=== PATIENT | male | born 1945 | race Caucasian/White ===

== ENCOUNTER 2016-10-19 15:05 | Inpatient (IN) | payer MEDICARE ==
[~2016-10-19] VITALS: Ht 173 cm; Wt 53.0 kg
[~2016-10-19 15:05] MED LIST: ALBUTEROL0.09 MG/AC IH; ASPIRIN ADULT L81 M2 PO; BENADRYL25 M2 PO; BISACODYL LAXATI5 MG PO; BLOOD PRESSURE MED; FLEXERIL10 MG PO; GABAPENTIN400 MG PO; HYDROCODONE BIT1 T11 PO; KEFLEX500 MG PO; LIPITOR20 MG PO; Lopressor25 MG PO; MEDROL DOSEPAK4 MG PO; Motrin,Rufen800 MG PO; NAPROSYN500 MG PO; NAPROXEN375 M1 PO; NORCO 5-325 TA1 EACH PO; PEG PO; PEPCID20 MG PO; PRAVASTATIN SOD20 MG PO; PREDNICOT20 MG PO; PREDNISONE20 M1 PO; PRINIVIL5 M1 PO; SPIRIVA18 MCG IH; ULTRAM50 MG PO
[2016-10-19 15:10] VITALS: BP 183/100
[2016-10-19] MEDS ORDERED: CITALOPRAM HYDR20 MG PO (15:12)
[2016-10-19 15:30] VITALS: BP 168/86
[2016-10-19 15:34] LABS: BASO # 0.1 10*3/uL (0.0-0.1); BASO % 0.9 % (0.0-1.0); EOS # 0.3 10*3/uL (0.0-0.4); EOS % 3.7 % (1.0-4.0); HEMATOCRIT 51.1 % (42.0-52.0); HEMOGLOBIN 17.6 g/dl (14.0-18.0); LYMPH # 2.8 10*3/uL (1.3-4.4); LYMPH % 31.8 % (27.0-41.0); MEAN CELL VOLUME 97.9 fl (80.0-94.0); MEAN CORPUSCULAR HGB 33.7 pg (27.0-31.0); MEAN CORPUSCULAR HGB CONC 34.4 g/dl (33.0-37.0); MEAN PLATELET VOLUME 10.3 fl (9.6-12.3); MONO # 0.8 10*3/uL (0.1-1.0); MONO % 9.2 % (3.0-9.0); NEUT # 4.8 10*3/uL (2.3-7.9); NEUT % 54.2 % (47.0-73.0); PLATELET COUNT AUTOMATED 256 10*3/uL (130-400); RED BLOOD COUNT 5.22 10*6/uL (4.50-5.90); RED CELL DISTRI WIDTH 15.2 % (0-14.5); WHITE BLOOD COUNT 8.8 10*3/uL (4.8-10.8)
[2016-10-19 16:05] LABS: INTERNATIONAL NORM RATIO 1.1 (2.0-3.5); PROTHROMBIN TIME 11.3 SECONDS (9.0-12.4)
[2016-10-19 16:14] LABS: ALBUMIN 3.8 gm/dl (3.1-4.5); ALKALINE PHOSPHATASE 62 U/L (45-117); BILIRUBIN, TOTAL 1.5 mg/dl (0.2-1.0); BUN 12 mg/dl (7-24); CARBON DIOXIDE 25 mmol/L (21-32); CHLORIDE 104 mmol/L (98-107); EST GLOM FILT AFRICAN AMERICAN > 60 ml/min; GLUCOSE 76 mg/dL (65-99); MAGNESIUM 2.1 mg/dL (1.5-2.1); POTASSIUM 4.2 mmol/L (3.5-5.1); SGOT/AST 14 IU/L (3-35); SGPT/ALT 23 U/L (12-78); SODIUM 141 mmol/L (136-145); TOTAL PROTEIN 6.7 gm/dL (6.4-8.2)
[2016-10-19 16:15] LABS: TROPONIN I < 0.015 ng/ml (<0.045)
[2016-10-19] MEDS ORDERED: CARVEDILOL6.25 MG PO (16:49)
[2016-10-19 16:50] VITALS: BP 140/80
[2016-10-19 17:12] VITALS: BP 179/93
[2016-10-19 18:03] LABS: CKMB 1.9 ng/ml (0.5-3.6)
[2016-10-19 19:35] LABS: URINE AMPHETAMINES < 1000 (1000ng/ml); URINE BARBITURATES < 200 (200ng/ml); URINE COCAINE > 300 (300ng/ml)
[2016-10-19 20:00] VITALS: BP 111/71
[2016-10-20] VITALS: BP 121/69
[2016-10-20 00:36] LABS: CKMB 1.8 ng/ml (0.5-3.6)
[2016-10-20 06:32] LABS: BASO % 0.1 % (0.0-1.0); HEMATOCRIT 51.9 % (42.0-52.0); HEMOGLOBIN 17.9 g/dl (14.0-18.0); IG # 0.1 10*3/uL (0.0-0.1); LYMPH # 1.3 10*3/uL (1.3-4.4); LYMPH % 9.4 % (27.0-41.0); MEAN CORPUSCULAR HGB 34.2 pg (27.0-31.0); MEAN CORPUSCULAR HGB CONC 34.5 g/dl (33.0-37.0); MONO # 0.1 10*3/uL (0.1-1.0); MONO % 0.7 % (3.0-9.0); NEUT # 12.4 10*3/uL (2.3-7.9); PLATELET COUNT AUTOMATED 285 10*3/uL (130-400); RED BLOOD COUNT 5.24 10*6/uL (4.50-5.90); WHITE BLOOD COUNT 13.9 10*3/uL (4.8-10.8)
[2016-10-20 06:41] LABS: CKMB 1.3 ng/ml (0.5-3.6)
[2016-10-20 06:54] LABS: ALBUMIN 3.8 gm/dl (3.1-4.5); ALKALINE PHOSPHATASE 71 U/L (45-117); BILIRUBIN, TOTAL 1.1 mg/dl (0.2-1.0); BUN 14 mg/dl (7-24); CARBON DIOXIDE 24 mmol/L (21-32); CHLORIDE 101 mmol/L (98-107); CHOLESTEROL 227 mg/dL (<200); EST GLOM FILT AFRICAN AMERICAN > 60 ml/min; GLUCOSE 123 mg/dL (65-99); HDL CHOLESTEROL 71 mg/dl (40-60); LDL CHOLESTEROL 139 mg/dL (9-159); PHOSPHOROUS 2.9 mg/dL (2.5-4.9); POTASSIUM 3.6 mmol/L (3.5-5.1); SGOT/AST 19 IU/L (3-35); SGPT/ALT 26 U/L (12-78); SODIUM 138 mmol/L (136-145); TOTAL PROTEIN 7.8 gm/dL (6.4-8.2); TRIGLYCERIDES 86 mg/dl (<150); VLDL CHOLESTEROL 17 mg/dL (6-40)
[2016-10-20 06:55] LABS: INTERNATIONAL NORM RATIO 1.1 (2.0-3.5); PROTHROMBIN TIME 11.2 SECONDS (9.0-12.4)
[2016-10-20 06:59] LABS: FREE T4 1.21 ng/dl (0.76-1.46); THYROID STIM HORMONE (HS) 0.782 uIU/ml (0.358-4.75)
[2016-10-20 07:24] LABS: HEMOGLOBIN A1c 5.4 % (4.8-5.6)
[2016-10-20 07:31] LABS: VITAMIN D, 25-HYDROXY 22.8 ng/mL (30-100)
[2016-10-20 07:32] LABS: FOLIC ACID 9.52 ng/mL (>5.38)
[2016-10-20 08:00] VITALS: BP 121/81
[2016-10-20 12:00] VITALS: BP 126/79
[2016-10-20 16:00] VITALS: BP 129/81
[2016-10-20 20:00] VITALS: BP 121/78
[2016-10-21] VITALS: BP 132/76
[2016-10-21 06:20] LABS: HEMOGLOBIN 16.1 g/dl (14.0-18.0); MEAN CELL VOLUME 96.6 fl (80.0-94.0); MEAN CORPUSCULAR HGB 33.8 pg (27.0-31.0); MEAN PLATELET VOLUME 9.7 fl (9.6-12.3); PLATELET COUNT AUTOMATED 272 10*3/uL (130-400); RED BLOOD COUNT 4.76 10*6/uL (4.50-5.90); RED CELL DISTRI WIDTH 15.2 % (0-14.5); WHITE BLOOD COUNT 24.1 10*3/uL (4.8-10.8)
[2016-10-21 06:53] LABS: ALBUMIN 3.6 gm/dl (3.1-4.5); ALKALINE PHOSPHATASE 60 U/L (45-117); BILIRUBIN, TOTAL 0.9 mg/dl (0.2-1.0); BUN 16 mg/dl (7-24); CARBON DIOXIDE 24 mmol/L (21-32); CHLORIDE 104 mmol/L (98-107); EST GLOM FILT AFRICAN AMERICAN > 60 ml/min; GLUCOSE 123 mg/dL (65-99); POTASSIUM 3.7 mmol/L (3.5-5.1); SGOT/AST 15 IU/L (3-35); SGPT/ALT 30 U/L (12-78); SODIUM 141 mmol/L (136-145); TOTAL PROTEIN 6.7 gm/dL (6.4-8.2)
[2016-10-21 07:10] LABS: MONOCYTE # 0.5 10*3/uL (0.1-1.0); NEUTROPHIL # 22.7 10*3/uL (2.3-7.9); NEUTROPHILS 94 % (47-73); PLATELET SUFFICIENCY NORMAL (NORMAL); TOTAL CELLS COUNTED 100 #CELLS
[2016-10-21 08:00] VITALS: BP 125/77
[2016-10-21] MEDS ORDERED: B12,B-12,B 12500 MC1 PO (11:42)
[2016-10-21] MEDS ORDERED: D-1000 185 MG-11 TAB PO (11:42)
[2016-10-21] MEDS ORDERED: PREDNISONE10 MG PO (12:56)
[2016-10-21] MEDS ORDERED: LEVAQUIN500 M2 PO (12:57)
== END 2016-10-21 13:30 | disposition home or self-care (01) | DRG 190 ==
LOC: ED 15:05 → EDHOLD 16:37 → 4E 16:37
PROVIDERS: Hospitalist; Internal Medicine; Nurse Practitioner Family
PROC: 4A12XM4 Monitoring of Cardiac Stress, External Approach (ICD-10-PCS; principal; 2016-10-20)
PROC: 3E073KZ Introduction of Other Diagnostic Substance into Coronary Artery, Percutaneous Approach (ICD-10-PCS; principal; 2016-10-20)
DX: J44.1 Chronic obstructive pulmonary disease with (acute) exacerbation (principal); J18.9 Pneumonia, unspecified organism; K21.9 Gastro-esophageal reflux disease without esophagitis; R07.89 Other chest pain; F14.90 Cocaine use, unspecified, uncomplicated; F10.10 Alcohol abuse, uncomplicated; I10 Essential (primary) hypertension; F32.9 Major depressive disorder, single episode, unspecified; E55.9 Vitamin D deficiency, unspecified; E53.8 Deficiency of other specified B group vitamins; E78.5 Hyperlipidemia, unspecified; G56.02 Carpal tunnel syndrome, left upper limb; F17.210 Nicotine dependence, cigarettes, uncomplicated; Z95.1 Presence of aortocoronary bypass graft; Z88.8 Allergy status to other drugs, medicaments and biological substances; Z91.030 Bee allergy status; Z90.79 Acquired absence of other genital organ(s); Z82.3 Family history of stroke; Z71.6 Tobacco abuse counseling; Z82.49 Family history of ischemic heart disease and other diseases of the circulatory system; Z84.89 Family history of other specified conditions; Z90.49 Acquired absence of other specified parts of digestive tract; Z98.49 Cataract extraction status, unspecified eye; Z85.46 Personal history of malignant neoplasm of prostate; Z79.82 Long term (current) use of aspirin; Z79.899 Other long term (current) drug therapy

== ENCOUNTER → 2017-02-23 | Outpatient (CLI) | payer MEDICARE ==
[~2017-02-23] MED LIST changes: +B12,B-12,B 12500 MC1 PO; +CARVEDILOL6.25 MG PO; +CITALOPRAM HYDR20 MG PO; +D-1000 185 MG-11 TAB PO; +LEVAQUIN500 M2 PO; +PREDNISONE10 MG PO
== END | disposition home or self-care (01) ==
LOC: ORTHO 03:49
DX: M18.12 Unilateral primary osteoarthritis of first carpometacarpal joint, left hand (principal)

== ENCOUNTER → 2017-04-30 | Outpatient (CLI) | payer MEDICARE ==
[~2017-04-30] MED LIST changes: +ATORVASTATIN CA40 M1 PO; +BACLOFEN20 M1 PO; +PROAIR HFA8.5 GM INH; +SPIRIVA -- 3018 MCG INH
[2017-04-30 09:57] LABS: BASO # 0.1 10*3/uL (0.0-0.1); BASO % 0.6 % (0.0-1.0); EOS # 0.2 10*3/uL (0.0-0.4); EOS % 2.3 % (1.0-4.0); LYMPH # 2.3 10*3/uL (1.3-4.4); LYMPH % 28.3 % (27.0-41.0); MEAN CELL VOLUME 98.1 fl (80.0-94.0); MEAN CORPUSCULAR HGB 33.4 pg (27.0-31.0); MEAN PLATELET VOLUME 9.2 fl (9.6-12.3); MONO # 0.6 10*3/uL (0.1-1.0); MONO % 7.9 % (3.0-9.0); NEUT # 4.9 10*3/uL (2.3-7.9); NEUT % 60.4 % (47.0-73.0); PLATELET COUNT AUTOMATED 278 10*3/uL (130-400); RED BLOOD COUNT 4.79 10*6/uL (4.50-5.90); RED CELL DISTRI WIDTH 13.9 % (0-14.5); WHITE BLOOD COUNT 8.1 10*3/uL (4.8-10.8)
[2017-04-30 10:27] LABS: ALBUMIN 4.1 gm/dl (3.1-4.5); ALKALINE PHOSPHATASE 63 U/L (45-117); BUN 13 mg/dl (7-24); CHLORIDE 101 mmol/L (98-107); CREATININE 1.13 mg/dL (0.70-1.30); POTASSIUM 4.6 mmol/L (3.5-5.1); SGOT/AST 16 IU/L (3-35); SGPT/ALT 24 U/L (12-78); SODIUM 134 mmol/L (136-145); TOTAL PROTEIN 7.1 gm/dL (6.4-8.2)
== END | disposition home or self-care (01) ==
LOC: LAB 08:29
PROVIDERS: Orthopaedic Surgery
DX: Z01.818 Encounter for other preprocedural examination (principal); J44.9 Chronic obstructive pulmonary disease, unspecified; M13.842 Other specified arthritis, left hand; Z87.891 Personal history of nicotine dependence; Z95.1 Presence of aortocoronary bypass graft; Z79.899 Other long term (current) drug therapy

== ENCOUNTER → 2018-02-10 | Outpatient (CLI) | payer MEDICARE ==
[~2018-02-10] MED LIST changes: +DOXYCYCLINE100 M3 PO; +HYDROCODONE-AC1 EAC1 PO; +NATURE'S BLEND F1 MG PO; +SYMB160 INH; +VENTOLIN 02.5 MG/3 M INH; +VITAMIN D32000 UNI1 PO
== END | disposition home or self-care (01) ==
LOC: RAD 10:31
DX: M47.892 Other spondylosis, cervical region (principal); G56.93 Unspecified mononeuropathy of bilateral upper limbs; M19.90 Unspecified osteoarthritis, unspecified site

== ENCOUNTER 2018-03-07 10:31 | Inpatient (IN) | payer MEDICARE ==
[~2018-03-07] VITALS: Ht 172.7 cm; Wt 55.9 kg
--- NOTE | ~2018-03-07 | EKG ---
[place], [place] ELECTROCARDIOGRAM REPORT NAME: LARISSA RANKIN UNIT #: [id number] ROOM: 427 DOCTOR: ANJALI DRAFT REPORT BIRTHDATE: [birth year] [facility] Test Date: 2018-03-07 Test Time: 10:46:39 Pat Name: LARISSA RANKIN Department: Room: 427 Gender: M Circulation Crew Leader: : 1945 Requested By: BARBRA BAGLEY Order Number: [id number] Reading MD: Rosie Graf MD Measurements Intervals [place] Rate: 85 P: 96 [place]: 160 QRS: -20 QRSD: 94 T: 90 QT: 408 QTc: 486 Interpretive Statements Sinus rhythm Borderline left axis deviation RSR' in V1 or V2, probably normal variant Repol abnrm suggests ischemia, anterolateral Electronically Signed On 03-08-2018 14:22:27 PST by Rosie Graf MD CM:EKGRPT:ELECTROCARDIOGRAM REPORT [id number] BARBRA CARR DRAFT REPORT BARBRA BAGLEY DO
--- NOTE | ~2018-03-07 | PR ---
[place], [place] PROGRESS NOTE NAME: LARISSA RANKIN UNIT #: [id number] ROOM: 427 DOCTOR: THERESE DODGE MD,KRZYSZTOF BIRTHDATE: [birth year] DOS: 03/09/2018 ADDENDUM PULMONARY PROGRESS NOTE SUBJECTIVE: The patient was independently seen and examined, obvl-ba-thso encounter, history was confirmed. Physical examination performed. Labs reviewed. Assessment and management of the patient today noted partially completed. The patient's note done by the medical logistics specialist approved. The patient continue to have reduction in respiratory symptom last 24 hours. Denies symptoms of chest pain, coughing, wheezing, and other symptoms had improved and was eager to be discharged home. OBJECTIVE: VITAL SIGNS: For the patient which were recorded as normal temperature, respiratory rate of 17, heart rate of 68, blood pressure 130/62, pulse ox saturation on room air at rest at 94% saturation. HEENT: Head was atraumatic. Eyes nonicterus. NECK: Supple. CARDIOVASCULAR: S1, S2 audible. LUNGS: Fhmi-oq-hfxamxqx decreased breath sounds, there was no wheeze or crackles today. ABDOMEN: Soft, nontender. Bowel sounds present. EXTREMITIES: Without any acute edema. IMPRESSION: Resolving acute exacerbation of chronic obstructive pulmonary disease, acute tracheobronchitis, history of chronic nicotine dependence. PLAN OF TREATMENT: The patient would be approved for home discharge from pulmonary standpoint with tapering prednisone, antibiotics. Abstinence from tobacco use were recommended. KRZYSZTOF SALEH MD CM:PNTRANS 1240 KRZYSZTOF DODGE MD 03/10/186 interface
--- NOTE | ~2018-03-07 | PR ---
[place], [place] PROGRESS NOTE NAME: LARISSA RANKIN UNIT #: [id number] ROOM: 427 DOCTOR: WINSTON CARBAJAL DO BIRTHDATE: [birth year] DOS: 03/09/2018 PULMONOLOGY PROGRESS NOTE SUBJECTIVE: The patient was seen and evaluated on a general medical floor. The patient reports that all of his symptoms have resolved and his wheezing. The patient denies any shortness of breath, nausea, vomiting, chest pain, urinary complaints or any other symptoms. PHYSICAL EXAMINATION: VITAL SIGNS: Temperature 97.2, pulse 68, respiratory rate 17, blood pressure 130/82, pulse ox 94% on room air. GENERAL: Alert and oriented x 3. No signs of distress. HEENT: Head is atraumatic, normocephalic. Eyes: PERRLA, nonicteric. NECK: Supple. CARDIOVASCULAR: Regular rate and rhythm. No murmurs, rubs, gallops. LUNGS: Mildly decreased breath sounds bilaterally. No wheezing, rales or rhonchi. ABDOMEN: Soft, nontender. Bowel sounds present. EXTREMITIES: Without acute edema. NEUROLOGIC: Grossly intact. No neurological deficits. LABORATORY DATA: No laboratory data drawn today. IMPRESSION: 1. Acute exacerbation of chronic obstructive pulmonary disease. 2. Acute bronchitis. 3. Chronic nicotine dependence. 4. Coronary artery disease. PLAN OF MANAGEMENT: The patient is stable for discharge from a Pulmonology standpoint on a steroid taper and antibiotics of the primary team's choosing. The patient is asymptomatic at this time and further adjustments will be made on the clinical progression of the patient. Winston Carbajal DO [place], [place] PROGRESS NOTE NAME: LARISSA RANKIN UNIT #: [id number] ROOM: 427 DOCTOR: WINSTON CARBAJAL DO BIRTHDATE: [birth year] KRZYSZTOF SALEH MD CM:PNTRANS [id number] WINSTON CARBAJAL DO 03/09/18 1421 interface
--- NOTE | ~2018-03-07 | CON ---
[place], [place] REPORT OF CONSULTATION NAME: LARISSA RANKIN UNIT #: [id number] ROOM: 427 DOCTOR: THERESE DODGE MDKRZYSZTOF BIRTHDATE: [birth year] DOS: 03/08/2018 PULMONARY CONSULTATION, EVALUATION AND MANAGEMENT CONSULTATION REQUESTED BY: Hospitalist services. REASON FOR CONSULTATION: For assessment of COPD. HISTORY OF PRESENT ILLNESS: This is a 72-year-old white male patient presented to the hospital and admitted on 03/07/2018. The patient came into the Emergency Room for assessment of ongoing respiratory symptom for the past several days with severe worsening the patient reported. The patient does have symptoms of coughing with chest congestion and increased shortness of breath. He does have some symptoms of wheezing at times. The patient denies symptoms of fever or chills. He has not been noted any symptoms of hemoptysis. The patient noted chronic tobacco use, a pack of cigarettes per day. The patient was admitted in the hospital for the medical management of acute exacerbation of chronic obstructive pulmonary disease at this time. REVIEW OF SYSTEMS: CONSTITUTIONAL: Fatigue and tiredness reported. Denies symptoms of fever or chills. EYES: Denies burning, redness or tenderness. EARS, NOSE, THROAT SYMPTOMS: Denies sore throat, hoarseness, otalgia, post-nasal drainage or epistaxis. CARDIOVASCULAR: Denies anginal pain, edema or pain in lower extremity. GASTROINTESTINAL SYMPTOMS: Denies dysphagia, nausea, vomiting, diarrhea, abdominal pain, hematemesis, melena, hematochezia, dysphagia or abnormal weight loss. GENITOURINARY SYMPTOMS: No dysuria, suprapubic pain or hematuria. MUSCULOSKELETAL SYMPTOMS: No joint pain, redness or tenderness. SKIN: Denies abnormal lesions or rashes. CENTRAL NERVOUS SYSTEM: Denies headache, diplopia or syncopal episode. Remaining systems were reviewed. They were noted all negative. PAST MEDICAL HISTORY: 1. Longstanding chronic obstructive pulmonary disease. 2. Essential hypertension. 3. Hyperlipidemia. 4. History of prostate cancer. PAST SURGICAL HISTORY: 1. Appendectomy. 2. Partial bowel resection. 3. Cataract extraction. 4. Coronary artery bypass grafting. 5. Prostatectomy. 6. Ventral hernia repair in the past, he also had a diagnosis of coronary artery disease. [place], [place] REPORT OF CONSULTATION NAME: LARISSA RANKIN UNIT #: [id number] ROOM: 427 DOCTOR: KRZYSZTOF BURNETT MD BIRTHDATE: [birth year] SOCIAL HISTORY: The patient stated he is , has 4 children, lives at home. Smoking noted as really in the teens and a pack of cigarettes per day reported active use. There was no history of alcohol use or illicit drug use. FAMILY HISTORY: The patient's father with complication of heart attack. Mother of unknown medical illnesses. HOME MEDICATIONS: Noted use of Ventolin nebulizer treatment 2.5 mg 4 times a day as needed for shortness of breath, ProAir HFA inhaler p.r.n. use, aspirin, Lipitor, Symbicort, Coreg, vitamin D3, citalopram, Pepcid, Vicodin, ibuprofen, lisinopril, and Spiriva. DRUG ALLERGIES: VITAMIN K. PHYSICAL EXAMINATION: GENERAL: This is a 72-year-old white male patient who has been currently resting comfortably, sitting on the bed without any acute distress this morning of assessment. Height of 5 feet 8 inches, weight of 129 pounds, BMI 18.7. VITAL SIGNS: Normal temperature since admission, respiratory rate 28-20. Heart rate ranging between 89-88, blood pressure 119/74 to 136/80. The pulse oxygen saturation recorded on room air was 95% saturation. HEENT: Head was atraumatic. Eyes nonicterus. NECK: Supple. CARDIOVASCULAR: S1, S2 audible. LUNGS: General reduction in breath sounds noted in the lungs bilaterally without any crackles. Expiratory wheezing was present. ABDOMEN: Soft, nontender, bowel sounds present. EXTREMITIES: Without acute edema. MUSCULOSKELETAL: Without acute deformities. CENTRAL NERVOUS SYSTEM: The patient's cranial nerves 2-12 intact. VISIBLE SKIN: No lesions or rashes. LABORATORY DATA: CBC that was done yesterday on admission on 03/07/2018, WBC count 11.5, otherwise CBC was normal. The CBC of the patient that was repeated again this morning, WBC count 15.3, hemoglobin 13.9, platelet count normal. The lactic acid 2.5, at followup was 1.8. CMP of the patient that was done yesterday, normal BUN and creatinine, sodium 133, remaining electrolytes normal. LFTs were normal. PT and PTT yesterday was noted as normal. The CMP of the patient done this morning, normal BUN, creatinine as well as electrolytes including sodium. 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 IMPRESSION: 1. The patient who has currently admitted to the hospital with ongoing symptoms of current shortness of breath, cough and other patient with acute exacerbation of chronic obstructive pulmonary disease for the past 7-10 days with the significant worsening noted last 4 days, also noted with acute bronchitis, which [place], [place] REPORT OF CONSULTATION NAME: LARISSA RANKIN UNIT #: [id number] ROOM: 427 DOCTOR: KRZYSZTOF BURNETT MD BIRTHDATE: [birth year] could be viral or bacterial in origin. 2. Chronic nicotine dependence. 3. Coronary artery disease. 4. Prostate cancer of the patient without any recurrence as well. 5. History of hyperlipidemia, essential hypertension. PLAN OF MANAGEMENT: The patient has been currently getting intravenous Solu-Medrol that will be continued for the patient at 40 mg b.i.d. Continue bronchodilators as well. Obtain the sputum Gram stain and culture. Continue antibiotic. Respiratory viral panel of the patient was ordered as well. Sputum for Gram stain and culture. Other plan of therapy for the patient and change in treatment will be ordered based on the progression of his illness. Counseling about tobacco cessation was also done at the bedside. Thanks for allowing me to participate in the care of this patient. KRZYSZTOF SALEH MD CM:CONSTR:REPORT OF CONSULTATION 1313 03/19/18 1012 interface
[~2018-03-07 10:31] MED LIST changes: -DOXYCYCLINE100 M3 PO; -HYDROCODONE-AC1 EAC1 PO; -NATURE'S BLEND F1 MG PO; -SYMB160 INH; -VENTOLIN 02.5 MG/3 M INH; -VITAMIN D32000 UNI1 PO
[2018-03-07 10:33] VITALS: BP 188/102
[2018-03-07 10:54] LABS: BASO # 0.1 10*3/uL (0.0-0.1); BASO % 0.8 % (0.0-1.0); EOS # 0.3 10*3/uL (0.0-0.4); HEMATOCRIT 46.5 % (42.0-52.0); HEMOGLOBIN 15.9 g/dl (14.0-18.0); LYMPH # 2.8 10*3/uL (1.3-4.4); MEAN CELL VOLUME 98.1 fl (80.0-94.0); MEAN CORPUSCULAR HGB 33.5 pg (27.0-31.0); MEAN CORPUSCULAR HGB CONC 34.2 g/dl (33.0-37.0); MEAN PLATELET VOLUME 9.6 fl (9.6-12.3); MONO # 1.3 10*3/uL (0.1-1.0); MONO % 11.7 % (3.0-9.0); NEUT # 6.9 10*3/uL (2.3-7.9); NEUT % 60.2 % (47.0-73.0); PLATELET COUNT AUTOMATED 299 10*3/uL (130-400); RED BLOOD COUNT 4.74 10*6/uL (4.50-5.90); RED CELL DISTRI WIDTH 12.7 % (0-14.5); WHITE BLOOD COUNT 11.5 10*3/uL (4.8-10.8)
[2018-03-07] MEDS ORDERED: SYMB160 INH (11:00)
[2018-03-07] MEDS ORDERED: VITAMIN D32000 UNI1 PO (11:01)
[2018-03-07] MEDS ORDERED: HYDROCODONE-AC1 EAC1 PO (11:01)
[2018-03-07 11:03] LABS: ACT PARTIAL THROMBO TIME 22.5 SECONDS (20.8-31.5); INTERNATIONAL NORM RATIO 1.1 (2.0-3.5)
[2018-03-07] MEDS ORDERED: VENTOLIN 02.5 MG/3 M INH (11:03)
[2018-03-07 11:17] LABS: ALBUMIN 3.8 gm/dl (3.1-4.5); ALKALINE PHOSPHATASE 78 U/L (45-117); BUN 15 mg/dl (7-24); CHLORIDE 97 mmol/L (98-107); CREATININE 1.08 mg/dL (0.70-1.30); LIPASE 187 U/L (73-393); POTASSIUM 4.2 mmol/L (3.5-5.1); SGOT/AST 24 IU/L (3-35); SGPT/ALT 28 U/L (12-78); SODIUM 133 mmol/L (136-145); TOTAL PROTEIN 6.8 gm/dL (6.4-8.2)
[2018-03-07 11:22] LABS: TROPONIN I < 0.015 ng/ml (<0.045)
[2018-03-07 12:49] VITALS: BP 120/71
[2018-03-07 12:55] VITALS: BP 133/91
[2018-03-07 16:00] VITALS: BP 103/64
[2018-03-07 20:00] VITALS: BP 109/68
[2018-03-08] VITALS: BP 119/74
[2018-03-08 06:45] LABS: HEMOGLOBIN 13.9 g/dl (14.0-18.0); MEAN CORPUSCULAR HGB 33.9 pg (27.0-31.0); MEAN CORPUSCULAR HGB CONC 34.6 g/dl (33.0-37.0); MEAN PLATELET VOLUME 9.8 fl (9.6-12.3); PLATELET COUNT AUTOMATED 271 10*3/uL (130-400); WHITE BLOOD COUNT 15.3 10*3/uL (4.8-10.8)
[2018-03-08 06:48] LABS: HEMATOCRIT 40.2 % (42.0-52.0)
[2018-03-08 06:56] LABS: ACT PARTIAL THROMBO TIME 23.5 SECONDS (20.8-31.5)
[2018-03-08 07:09] LABS: ALBUMIN 3.2 gm/dl (3.1-4.5); ALKALINE PHOSPHATASE 53 U/L (45-117); BUN 16 mg/dl (7-24); CHLORIDE 106 mmol/L (98-107); CHOLESTEROL 90 mg/dL (<200); CREATININE 0.98 mg/dL (0.70-1.30); FREE T4 1.13 ng/dl (0.76-1.46); PHOSPHOROUS 2.1 mg/dL (2.5-4.9); POTASSIUM 4.6 mmol/L (3.5-5.1); SGOT/AST 18 IU/L (3-35); SGPT/ALT 22 U/L (12-78); SODIUM 137 mmol/L (136-145); TOTAL PROTEIN 5.9 gm/dL (6.4-8.2); TRIGLYCERIDES 44 mg/dl (<150); VLDL CHOLESTEROL 9 mg/dL (6-40)
[2018-03-08 07:15] LABS: HDL CHOLESTEROL 47 mg/dl (40-60); LDL CHOLESTEROL 34 mg/dL (9-159); THYROID STIM HORMONE (HS) 0.313 uIU/ml (0.358-4.75)
[2018-03-08 07:27] LABS: TOTAL CELLS COUNTED 100 #CELLS
[2018-03-08 07:28] LABS: BURR CELLS FEW; PLATELET SUFFICIENCY NORMAL (NORMAL)
[2018-03-08 08:39] LABS: VITAMIN D, 25-HYDROXY 18.5 ng/mL (30-100)
[2018-03-08 09:09] VITALS: BP 136/80
[2018-03-08 12:00] VITALS: BP 145/76
[2018-03-08 16:00] VITALS: BP 134/75
[2018-03-08 20:00] VITALS: BP 119/69
[2018-03-09] VITALS: BP 112/70
[2018-03-09 08:27] VITALS: BP 130/82
[2018-03-09] MEDS ORDERED: B12,B-12,B 12500 MC1 PO (09:15)
[2018-03-09] MEDS ORDERED: PREDNISONE10 MG PO (09:15)
[2018-03-09] MEDS ORDERED: NATURE'S BLEND F1 MG PO (09:15)
[2018-03-09] MEDS ORDERED: DOXYCYCLINE100 M3 PO (09:15)
[2018-03-11 03:08] LABS: ADENOVIRUS Negative (Negative); INFLUENZA A Negative (Negative); INFLUENZA B Negative (Negative); METAPNEUMOVIRUS Negative (Negative); PARAINFLUENZA 1 Negative (Negative); PARAINFLUENZA 2 Negative (Negative); PARAINFLUENZA 3 Negative (Negative); RHINOVIRUS Negative (Negative); RSV A Negative (Negative); RSV B Negative (Negative)
== END 2018-03-09 13:10 | disposition home or self-care (01) | DRG 871 ==
LOC: ED 10:31 → 4E 12:15 → EDHOLD 12:15 → 4E 12:39
PROVIDERS: Emergency Medicine; Internal Medicine; Internal Medicine Critical Care Medicine
DX: A41.9 Sepsis, unspecified organism (principal); R65.20 Severe sepsis without septic shock; J44.0 Chronic obstructive pulmonary disease with (acute) lower respiratory infection; J18.9 Pneumonia, unspecified organism; J44.1 Chronic obstructive pulmonary disease with (acute) exacerbation; E87.1 Hypo-osmolality and hyponatremia; G56.02 Carpal tunnel syndrome, left upper limb; I10 Essential (primary) hypertension; E78.5 Hyperlipidemia, unspecified; F32.9 Major depressive disorder, single episode, unspecified; E55.9 Vitamin D deficiency, unspecified; J20.9 Acute bronchitis, unspecified; I25.10 Atherosclerotic heart disease of native coronary artery without angina pectoris; F17.210 Nicotine dependence, cigarettes, uncomplicated; E53.8 Deficiency of other specified B group vitamins; C61 Malignant neoplasm of prostate; E87.8 Other disorders of electrolyte and fluid balance, not elsewhere classified; R73.9 Hyperglycemia, unspecified; Z71.6 Tobacco abuse counseling; Z90.49 Acquired absence of other specified parts of digestive tract; Z95.1 Presence of aortocoronary bypass graft; Z90.79 Acquired absence of other genital organ(s); Z82.49 Family history of ischemic heart disease and other diseases of the circulatory system; Z88.8 Allergy status to other drugs, medicaments and biological substances; Z91.030 Bee allergy status; Z79.82 Long term (current) use of aspirin; Z79.899 Other long term (current) drug therapy

== ENCOUNTER → 2018-04-20 | Outpatient (CLI) | payer MEDICARE ==
[~2018-04-20] MED LIST changes: +DOXYCYCLINE100 M3 PO; +HYDROCODONE-AC1 EAC1 PO; +NATURE'S BLEND F1 MG PO; +SYMB160 INH; +VENTOLIN 02.5 MG/3 M INH; +VITAMIN D32000 UNI1 PO
== END | disposition home or self-care (01) ==
LOC: LAB 14:40
DX: J44.9 Chronic obstructive pulmonary disease, unspecified (principal)

== ENCOUNTER → 2018-09-24 | Outpatient (CLI) | payer MEDICARE | END | disposition home or self-care (01) | LOC: CT 13:37 | DX: S23.41XD Sprain of ribs, subsequent encounter (principal); X58.XXXD Exposure to other specified factors, subsequent encounter; I25.10 Atherosclerotic heart disease of native coronary artery without angina pectoris; J43.9 Emphysema, unspecified ==

== ENCOUNTER → 2018-12-28 | Outpatient (CLI) | payer MEDICARE | END | disposition home or self-care (01) | LOC: CT 09:43 | DX: J43.9 Emphysema, unspecified (principal); R91.1 Solitary pulmonary nodule ==

== ENCOUNTER → 2019-01-17 | Outpatient (CLI) | payer MEDICARE ==
[2019-01-18 07:09] LABS: ALPHA-1-ANTITRYPSIN, SERUM 142 mg/dL (90-200)
== END | disposition home or self-care (01) ==
LOC: LAB 11:50
PROVIDERS: Internal Medicine Critical Care Medicine
DX: J44.9 Chronic obstructive pulmonary disease, unspecified (principal)

== ENCOUNTER → 2019-03-03 | Outpatient (CLI) | payer MEDICARE ==
[~2019-03-03] MED LIST changes: +AVPAK AZITHROM250 MG PO; +CARAFATE1 GM PO; +LOPRESSOR25 MG PO; +MUCINEX ER600 MG PO; +VISTARIL25 MG PO; +VITAMIN D5000 UNI1 PO
== END | disposition home or self-care (01) ==
LOC: CT 13:00
DX: J43.8 Other emphysema (principal); I25.10 Atherosclerotic heart disease of native coronary artery without angina pectoris; K76.0 Fatty (change of) liver, not elsewhere classified; Z90.89 Acquired absence of other organs

== ENCOUNTER 2019-03-21 09:17 | Inpatient (IN) | payer MEDICARE ==
[~2019-03-21] VITALS: Ht 172.7 cm; Wt 59.0 kg
[2019-03-21] VITALS (8 sets, daily range): BP systolic 133–219; BP diastolic 76–129
[~2019-03-21 09:17] MED LIST changes: -AVPAK AZITHROM250 MG PO; -CARAFATE1 GM PO; -LOPRESSOR25 MG PO; -MUCINEX ER600 MG PO; -VISTARIL25 MG PO; -VITAMIN D5000 UNI1 PO
--- NOTE | 2019-03-21 09:47 | NUR ---
PT. PLACED ON BIPAP IN ER, SETTINGS 15/5 WITH 30% FIO2. VT 701 LEAK 6, RATE 15. BACK UP RATE 8. ALARMS HI PRESSURE 30 LOW INSP. PRESSURE 5. PT. TOLERATING WELL. AEROSOL TX GIVEN VIA BIPAP.
[2019-03-21 09:58] LABS: BASO # 0.1 10*3/uL (0.0-0.1); BASO % 0.4 % (0.0-1.0); EOS # 0.2 10*3/uL (0.0-0.4); EOS % 1.6 % (1.0-4.0); HEMATOCRIT 41.6 % (42.0-52.0); HEMOGLOBIN 13.7 g/dl (14.0-18.0); LYMPH # 0.8 10*3/uL (1.3-4.4); LYMPH % 5.8 % (27.0-41.0); MEAN CORPUSCULAR HGB 31.9 pg (27.0-31.0); MEAN CORPUSCULAR HGB CONC 32.9 g/dl (33.0-37.0); MEAN PLATELET VOLUME 9.8 fl (9.6-12.3); MONO # 1.2 10*3/uL (0.1-1.0); MONO % 8.5 % (3.0-9.0); NEUT # 11.7 10*3/uL (2.3-7.9); NEUT % 83.1 % (47.0-73.0); PLATELET COUNT AUTOMATED 314 10*3/uL (130-400); RED BLOOD COUNT 4.29 10*6/uL (4.50-5.90); RED CELL DISTRI WIDTH 13.4 % (0-14.5)
--- NOTE | 2019-03-21 10:13 | NUR ---
TOLERATING BIPAP WELL. RESPIRATIONS AND WOB HAVE IMPROVED SIGNIFICANTLY. VARIOUS FAMILY AT THE BEDSIDE.
[2019-03-21 10:15] LABS: ALKALINE PHOSPHATASE 74 U/L (45-117); BUN 13 mg/dl (7-24); CHLORIDE 104 mmol/L (98-107); CREATININE 1.02 mg/dL (0.70-1.30); POTASSIUM 3.7 mmol/L (3.5-5.1); SGOT/AST 28 IU/L (3-35); SGPT/ALT 25 U/L (12-78); SODIUM 135 mmol/L (136-145); TOTAL PROTEIN 7.7 gm/dL (6.4-8.2)
[2019-03-21 10:19] LABS: ACT PARTIAL THROMBO TIME 27.1 SECONDS (20.0-32.1); INTERNATIONAL NORM RATIO 0.9 (2.0-3.5)
[2019-03-21 10:22] LABS: TROPONIN I < 0.015 ng/ml (<0.045)
--- NOTE | 2019-03-21 10:29 | NUR ---
NOTIFIED DR BAGLEY OF LACTIC ACID OF 2.7.
--- NOTE | 2019-03-21 11:13 | NUR ---
UPDATED ON ADMISSION STATUS AND AWARE WE ARE AWAITING BED ASSIGNMENT. RIB PAIN IS CHRONIC BUT WORSE TODAY SINCE ISSUES WITH BREATHING HAS WORSENED.
--- NOTE | 2019-03-21 11:24 | NUR ---
PATIENT SUDDENLY FEELING LIKE IS "SUFFOCATING" WITH THE BIPAP ON. GOT HIS RESPIRATIONS OUT OF SYNC WITH BIPAP AND STARTED TO FEEL THIS WAY. UNABLE TO NEW CAR MAKE READY MECHANIC BREATHING BACK IN SYNC, SO BIPAP REMOVED AND 4L OXYGEN APPLIED VIA N/C. NOTIFIED JIMENEZ, RT OF ROOM ASSIGNMENT AND BIPAP OFF.
--- NOTE | 2019-03-21 11:33 | NUR ---
ATTEMPTED TO SPEAK WITH GAMA, RECEIVING RN TO ADVISE OF
--- NOTE | 2019-03-21 11:54 | NUR ---
ATTEMPTED TO REACH GAMA, RECEIVING RN AND NURSE'S STATION WITHOUT SUCCESS.
--- NOTE | 2019-03-21 12:10 | NUR ---
A 73, admitted to , under the services of CHRIS Wilburn DO with a diagnosis of ACUTE RESP FAILURE, SEVERE SEPSIS,PNEUMONITIS. Chief complaint is SHORTNESS OF BREATH. Patient arrived via bed from ER. Monitor applied. Initial assessment completed. Vital signs taken and recorded. CHRIS WILBURN DO notified of admission to the unit. Orders received. See assessment for past medical history, medications and allergies. Patient and/or family oriented to unit. [address] visitation policy reviewed. Clothing/patient valuable form completed. MARIANNE NESS
--- NOTE | 2019-03-21 12:29 | NUR ---
DR. SOTELO CALLED REGARDING PT RESP*-30-32, HR-120-130'S. LABORERED BREATHING. BIPAP PLACED PULSE OX AFTER 5 MINUTES 94% ON 40% BIPAP.
--- NOTE | 2019-03-21 12:30 | NUR ---
TRANSFERRING PT GAVE FENG REPORT.
--- NOTE | 2019-03-21 12:41 | NUR ---
PT TRANSFERED TO [facility]U BED 8 AT THIS TIME WITH RESPIRATORY DISTRESS. PLACED IMMEDIATLY ON BIPAP. POX 95% ON 35% O2. RESPIRATORY RATE 11. BP 165/110. LUNGS DIMINISHED THROUGHOUT.
--- NOTE | 2019-03-21 12:45 | NUR ---
DR SOTELO AT BEDSIDE AND AWARE OF ELEVATED TROPONIN OF 0.122.
--- NOTE | 2019-03-21 12:51 | NUR ---
DR SALEH NOTIFIED OF NEW CONSULT ORDER.
--- NOTE | 2019-03-21 13:16 | NUR ---
REMAINS ON BI-PAP 15/5 FIO2 35%. PULSE OX 96%. SLIGHT WHEEZE HEARD IN POSTERIOR LUNG AGUILA WITH VERY POOR AIR EXCHANGE.
[2019-03-21 13:22] LABS: ABG BASE EXCESS -4.1 mmol/L (-2.0-2.0); ARTERIAL BLOOD GAS PH 7.35 (7.35-7.45)
--- NOTE | 2019-03-21 13:41 | NUR ---
DR. SALEH NOTIFIED OF ABG RESULTS
[2019-03-21] MEDS ORDERED: VISTARIL25 MG PO (15:01)
[2019-03-21] MEDS ORDERED: CARAFATE1 GM PO (15:02)
--- NOTE | 2019-03-21 16:09 | NUR ---
[facility] NOTIFIED OF CONSULT
--- NOTE | 2019-03-21 19:40 | NUR ---
MEDICATED WITH NORCO FOR COMPLAINTS OF PAIN UNDER BOTH RIBS. RATES PAIN A 6 ON A PAIN SCALE OF 1-10
--- NOTE | 2019-03-21 21:34 | NUR ---
MEDICATED WITH RESTORIL ORDERED FOR SLEEP
[2019-03-22] VITALS: BP 128/77
[2019-03-22 04:00] VITALS: BP 132/83
[2019-03-22 05:28] LABS: HEMATOCRIT 34.8 % (42.0-52.0); HEMOGLOBIN 11.4 g/dl (14.0-18.0); MEAN CELL VOLUME 96.4 fl (80.0-94.0); MEAN CORPUSCULAR HGB 31.6 pg (27.0-31.0); MEAN CORPUSCULAR HGB CONC 32.8 g/dl (33.0-37.0); MEAN PLATELET VOLUME 9.7 fl (9.6-12.3); PLATELET COUNT AUTOMATED 242 10*3/uL (130-400); RED BLOOD COUNT 3.61 10*6/uL (4.50-5.90); RED CELL DISTRI WIDTH 13.4 % (0-14.5); WHITE BLOOD COUNT 8.5 10*3/uL (4.8-10.8)
[2019-03-22 05:44] LABS: ALBUMIN 2.9 gm/dl (3.1-4.5); ALKALINE PHOSPHATASE 49 U/L (45-117); BUN 17 mg/dl (7-24); CHLORIDE 107 mmol/L (98-107); CHOLESTEROL 110 mg/dL (<200); CREATININE 1.03 mg/dL (0.70-1.30); HDL CHOLESTEROL 53 mg/dl (40-60); LDL CHOLESTEROL 46 mg/dL (9-159); PHOSPHOROUS 2.6 mg/dL (2.5-4.9); POTASSIUM 3.9 mmol/L (3.5-5.1); SGOT/AST 25 IU/L (3-35); SGPT/ALT 21 U/L (12-78); SODIUM 137 mmol/L (136-145); TOTAL PROTEIN 5.9 gm/dL (6.4-8.2); TRIGLYCERIDES 53 mg/dl (<150); VLDL CHOLESTEROL 11 mg/dL (6-40)
[2019-03-22 05:50] LABS: FREE T4 0.97 ng/dl (0.76-1.46); THYROID STIM HORMONE (HS) 0.887 uIU/ml (0.358-4.75)
[2019-03-22 06:22] LABS: BURR CELLS FEW; PLATELET SUFFICIENCY NORMAL (NORMAL); TOTAL CELLS COUNTED 100 #CELLS
[2019-03-22 06:44] LABS: BILIRUBIN NEGATIVE (NEGATIVE); BLOOD TRACE-LYSED (NEGATIVE); CLARITY SL CLOUDY (CLEAR); COLOR YELLOW (YELLOW); GLUCOSE NEGATIVE (NEGATIVE); KETONE NEGATIVE (NEGATIVE); LEUKO ESTERASE NEGATIVE (NEGATIVE); NITRITE NEGATIVE (NEGATIVE); SPECIFIC GRAVITY 1.025 (1.005-1.030); UROBILINOGEN 0.2 E.U./dl (0.2-1.0)
[2019-03-22 07:37] LABS: VITAMIN D, 25-HYDROXY 7.6 ng/mL (30-100)
[2019-03-22 07:43] LABS: BACTERIA TRACE
[2019-03-22 08:00] VITALS: BP 146/79
--- NOTE | 2019-03-22 08:02 | NUR ---
Nursing screen and Occupational Therapy referral received. Thank you. Lizzy Choudhury OTR/L
--- NOTE | 2019-03-22 08:05 | NUR ---
PHYSICAL THERAPY Screen received as well as orders for PT will follow thank you Karrie Cook PT
[2019-03-22 08:47] LABS: ABG BASE EXCESS -1.7 mmol/L (-2.0-2.0); ARTERIAL BLOOD GAS PH 7.417 (7.35-7.45)
--- NOTE | 2019-03-22 10:30 | NUR ---
Staff Auditor in to see patient. He is currently having an echo completed at the bedside. Will follow up at a later time.
[2019-03-22 12:00] VITALS: BP 120/69
--- NOTE | 2019-03-22 15:06 | NUR ---
PT GIVEN NORCO FOR RIB PAIN. WILL CONTINUE TO MONITOR PT.
--- NOTE | 2019-03-22 15:41 | NUR ---
Outside Machinist Helper in to talk to patient. Patient states lives at home with his son. There are 16 steps in the home. Physician: Dr. Solitario Gilliland Pharmacy: [facility] Home health services: none Patient's level of ADLs: INDEPENDENT Patient has working utilities: yes DME: O2 @ 2L nc, nebulizer, portable O2 tanks, O2 supplier [employer] Follow-up physician's appointment after d/c: will be made by the hospitalist nurse director upon discharge Does patient want to access PORTAL?: no Discharge plan discussed with patient. He lives at home with his son. He is independent in his ADLs and ambulation. Discussed home health care services and he denies any home needs at this time. When medically stable he will be discharged to home. His son will provide transportation on discharge. TRISHA QUINN
[2019-03-22 20:00] VITALS: BP 120/65
--- NOTE | 2019-03-22 20:20 | NUR ---
PRN NORCO GIVEN AT THIS TIME FOR RIB PAIN. CALL LIGHT IS WITHIN REACH, WILL MONITOR.
[2019-03-23] VITALS: BP 129/72
--- NOTE | 2019-03-23 05:28 | NUR ---
[RN CEPACOL GIVEN FOR C/O SORETHROAT.
--- NOTE | 2019-03-23 05:48 | NUR ---
24 HR. CHART CHECK COMPLETE.
[2019-03-23 06:22] LABS: HEMOGLOBIN 11.9 g/dl (14.0-18.0); MEAN CELL VOLUME 96.3 fl (80.0-94.0); MEAN CORPUSCULAR HGB 31.8 pg (27.0-31.0); MEAN CORPUSCULAR HGB CONC 33.1 g/dl (33.0-37.0); MEAN PLATELET VOLUME 10.3 fl (9.6-12.3); PLATELET COUNT AUTOMATED 256 10*3/uL (130-400); RED BLOOD COUNT 3.74 10*6/uL (4.50-5.90); RED CELL DISTRI WIDTH 13.9 % (0-14.5); WHITE BLOOD COUNT 21.9 10*3/uL (4.8-10.8)
--- NOTE | 2019-03-23 06:41 | NUR ---
PATIENT REQUESTING PAIN MEDICATION FOR RIB PAIN RATED 7/10 ON 0/10 SCALE. NORCO ADMINISTERED PRESCRIBED. WILL MONITOR FOR EFFECTIVENESS.
[2019-03-23 06:50] LABS: BUN 16 mg/dl (7-24); CHLORIDE 108 mmol/L (98-107); CREATININE 0.96 mg/dL (0.70-1.30); POTASSIUM 3.9 mmol/L (3.5-5.1); SODIUM 139 mmol/L (136-145)
[2019-03-23 06:54] LABS: PLATELET SUFFICIENCY NORMAL (NORMAL); SCHISTOCYTES FEW; TOTAL CELLS COUNTED 100 #CELLS
[2019-03-23 06:55] LABS: BURR CELLS FEW
[2019-03-23 07:30] VITALS: BP 130/88
--- NOTE | 2019-03-23 08:03 | NUR ---
VITALS AND ASSESSMENT COMPLETED AND DOCUMENTED. PATIENT TOLERATED WELL. NO COMPLAINTS AT THIS TIME AND IS SITTING UPRIGHT IN BED READING. SERENA MOSERCC
--- NOTE | 2019-03-23 09:00 | NUR ---
Medical Assistant Float in to see patient. No new needs or request at this time. He denies any home needs. When medically stable he will be discharged to home. Treating COPD with solumedrol, zithromax, and rocephin. Elevated troponin due to demand ischemia.
--- NOTE | 2019-03-23 10:44 | NUR ---
PATIET BATHED, SHAVED AND OUT OF BED SITTING UP IN CHAIR WATCHING TV. PATIENT HAS NO COMPLAINTS OR ISSUES. DENIES HAVING ANY PAIN SERENA ROGERS
--- NOTE | 2019-03-23 11:00 | NUR ---
CEPACOL LOZENGE GIVEN ORDERED PER PT REQUEST FOR C/O "SORE THROAT"
--- NOTE | 2019-03-23 11:30 | NUR ---
Occupational therapy orders received and OT evaluation completed in full on floor four. Patient precautions include fall risk and 2LO2. Patient demonstrated independent ADLs and functional transfers during OT evaluation. Patient educated on AE including a BSC and shower chair for his return to home, and patient verbalized a good understanding. Patient felt he is at his baseline for ADLs, refer to PT for balance and endurance treatment. Patient complexity is low, [id number]. OT recommends home with HH SN, OT, and PT. Thank you for the referral. Carleen Marquez, OTR/L
--- NOTE | 2019-03-23 11:39 | NUR ---
PHYSICAL THERAPY Jing completed moderate level of complexity 13757 recommend Home w family assist and HH. Pt not interested in SNF. Pt lives w son and two granddaughters usually someone home t/o day. Discussed 1st floor set up bed/urinal/BSC per pt discussing/working w son reg installing BR for first floor. PT to work on transfers, ambulation, strengthening and stairs. Karrie Cook PT
[2019-03-23 12:00] VITALS: BP 122/86
--- NOTE | 2019-03-23 12:08 | NUR ---
VITALS AND SHIFT ASSESSMENT COMPLETE. PATIENT TOLERATED WELL. SLIGHT DEPENDANT EDMEA IN BOTH ANKLES AFTER SITTING IN CHAIR. PATIENT BACK IN BED WITH BOTH ANKLES ELEVATED. PATIENT IS COMFORTABLE AND WATCHING TV. NO PAIN AT THIS TIME SERENA ROGERS
--- NOTE | 2019-03-23 13:25 | NUR ---
MEDICATED FOR PAIN WITH NORCO PER PT REQUEST FOR C/O DULL ACHING 7/10 RIB AND ABDOMINAL PAIN. RESTING QUIETLY IN BED. COOPERATIVE.
--- NOTE | 2019-03-23 13:32 | NUR ---
PATIENT IN BED RESTING. NO COMPLAINTS AT THIS TIME. REPORT GIVEN TO [facility]IA [facility]BARADO [facility]
--- NOTE | 2019-03-23 14:40 | NUR ---
SANJIV RELIEVING PAIN PER PT. WILL CONTINUE TO MONITOR. CALL LIGHT WITHIN REACH.
[2019-03-23 16:00] VITALS: BP 145/76
--- NOTE | 2019-03-23 19:37 | NUR ---
24 HR. CHART CHECK COMPLETE.
[2019-03-23 20:00] VITALS: BP 142/81
[2019-03-24] VITALS: BP 139/79
[2019-03-24 07:40] VITALS: BP 160/82
--- NOTE | 2019-03-24 07:51 | NUR ---
PT REQUESTED NORCO PO PER PRN ORDER FOR C/O RIB PAIN DUE TO COUGH. RATES PAIN 11/20. WILL MONITOR EFFECTIVENESS. 02 IN USE VIA 2LNC. CALL LIGHT WITHIN REACH.
[2019-03-24 08:33] LABS: HEMATOCRIT 39.1 % (42.0-52.0); MEAN CORPUSCULAR HGB 32.3 pg (27.0-31.0); MEAN CORPUSCULAR HGB CONC 33.2 g/dl (33.0-37.0); MEAN PLATELET VOLUME 9.9 fl (9.6-12.3); PLATELET COUNT AUTOMATED 282 10*3/uL (130-400); RED BLOOD COUNT 4.03 10*6/uL (4.50-5.90); RED CELL DISTRI WIDTH 14.1 % (0-14.5); WHITE BLOOD COUNT 20.7 10*3/uL (4.8-10.8)
[2019-03-24 08:54] LABS: BUN 19 mg/dl (7-24); CHLORIDE 106 mmol/L (98-107); CREATININE 1.05 mg/dL (0.70-1.30); POTASSIUM 3.8 mmol/L (3.5-5.1); SODIUM 138 mmol/L (136-145)
[2019-03-24] MEDS ORDERED: MUCINEX ER600 MG PO (09:05)
[2019-03-24] MEDS ORDERED: LOPRESSOR25 MG PO (09:05)
[2019-03-24] MEDS ORDERED: VITAMIN D5000 UNI1 PO (09:05)
[2019-03-24] MEDS ORDERED: PREDNISONE10 MG PO (09:05)
[2019-03-24] MEDS ORDERED: AVPAK AZITHROM250 MG PO (09:05)
--- NOTE | 2019-03-24 09:25 | NUR ---
PHYSICAL THERAPY Patient presented to therapy in supine in bed with 2 liters of spO2 via nasal canula. Patient gives informed consent for treatment. Patient was identified by name and on wristband. Patient performed supine to sitting at EOB transfer with SBA. Patient's O2 sats taken and recorded as 94% and pulse at 64. Patient sit to stand from EOB with SBA. Patient performed gait with no assistive device and Close Supervision to [facility] x 1, due to occassional moderate LOB for 200' x 1. Patient transferred back to supine in bed with SBA. Patient was left in supine in bed with head of bed elevated, call light within reach and spO2 attached to wall outlet with 2 liters of spO2. Patient was 1:1 with this DENTURE PACKER for 16 minutes total. SAHARA ISIDRO DENTURE PACKER
[2019-03-24 09:44] LABS: ACANTHOCYTES FEW; PLATELET SUFFICIENCY NORMAL (NORMAL); TOTAL CELLS COUNTED 100 #CELLS
--- NOTE | 2019-03-24 11:10 | NUR ---
Discharge instructions reviewed with patient/family. Patient receptive and verbalizes understanding. Follow-up care arranged. Written instructions given to patient/family. FADIA LUTZ.
--- NOTE | 2019-03-25 14:45 | NUR ---
PHYSICAL THERAPY CO-SIGN I approve of the Physical Therapy notes written above. Karrie Cook PT
== END 2019-03-24 11:10 | disposition home or self-care (01) | DRG 871 ==
LOC: ED 09:17 → 4E 10:56 → EDHOLD 10:56 → ICCU 10:56 → 4E 11:24 → ICCU 12:33 → 4E 03-22 14:32
PROVIDERS: Emergency Medicine; Internal Medicine; Internal Medicine Critical Care Medicine; ADMIT Internal Medicine
PROC: 5A09357 Assistance with Respiratory Ventilation, Less than 24 Consecutive Hours, Continuous Positive Airway Pressure (ICD-10-PCS; principal; 2019-03-21)
DX: A41.9 Sepsis, unspecified organism (principal); J18.9 Pneumonia, unspecified organism; J96.01 Acute respiratory failure with hypoxia; I21.A1 Myocardial infarction type 2; J44.1 Chronic obstructive pulmonary disease with (acute) exacerbation; E87.1 Hypo-osmolality and hyponatremia; J44.0 Chronic obstructive pulmonary disease with (acute) lower respiratory infection; R65.20 Severe sepsis without septic shock; R73.9 Hyperglycemia, unspecified; J20.9 Acute bronchitis, unspecified; I10 Essential (primary) hypertension; I37.1 Nonrheumatic pulmonary valve insufficiency; I25.10 Atherosclerotic heart disease of native coronary artery without angina pectoris; F10.10 Alcohol abuse, uncomplicated; E78.5 Hyperlipidemia, unspecified; Z96.1 Presence of intraocular lens; F32.9 Major depressive disorder, single episode, unspecified; E55.9 Vitamin D deficiency, unspecified; E53.8 Deficiency of other specified B group vitamins; Z88.8 Allergy status to other drugs, medicaments and biological substances; Z91.030 Bee allergy status; Z87.01 Personal history of pneumonia (recurrent); Z85.46 Personal history of malignant neoplasm of prostate; Z90.49 Acquired absence of other specified parts of digestive tract; Z95.1 Presence of aortocoronary bypass graft; Z90.79 Acquired absence of other genital organ(s); Z98.42 Cataract extraction status, left eye; Z98.41 Cataract extraction status, right eye; Z87.891 Personal history of nicotine dependence; Z82.49 Family history of ischemic heart disease and other diseases of the circulatory system; Z82.3 Family history of stroke; Z84.89 Family history of other specified conditions; Z99.81 Dependence on supplemental oxygen; Z79.82 Long term (current) use of aspirin; Z79.899 Other long term (current) drug therapy

== ENCOUNTER 2019-03-28 10:53 | Inpatient (IN) | payer MEDICARE ==
[2019-03-28] VITALS (23 sets, daily range): BP systolic 60–171; BP diastolic 00–90
[~2019-03-28] VITALS: Ht 172.7 cm; Wt 59.1 kg
[~2019-03-28 10:53] MED LIST changes: +AVPAK AZITHROM250 MG PO; +CARAFATE1 GM PO; +LOPRESSOR25 MG PO; +MUCINEX ER600 MG PO; +VISTARIL25 MG PO; +VITAMIN D5000 UNI1 PO
--- NOTE | 2019-03-28 11:04 | NUR ---
PATIENT BP MANUALLY IS 60/42. DOPPLER READS [address] BAGLEY NOTIFIED. IV FLUIDS NS TO BE STARTED WIDE OPEN ON PRESSURE BAG.
[2019-03-28 11:27] LABS: BASO % 0.2 % (0.0-1.0); EOS # 0.5 10*3/uL (0.0-0.4); HEMATOCRIT 24.3 % (42.0-52.0); LYMPH # 1.9 10*3/uL (1.3-4.4); LYMPH % 20.1 % (27.0-41.0); MEAN CELL VOLUME 98.4 fl (80.0-94.0); MEAN CORPUSCULAR HGB 32.4 pg (27.0-31.0); MEAN CORPUSCULAR HGB CONC 32.9 g/dl (33.0-37.0); MEAN PLATELET VOLUME 10.1 fl (9.6-12.3); MONO # 0.9 10*3/uL (0.1-1.0); NEUT # 6.3 10*3/uL (2.3-7.9); NEUT % 64.9 % (47.0-73.0); PLATELET COUNT AUTOMATED 236 10*3/uL (130-400); RED BLOOD COUNT 2.47 10*6/uL (4.50-5.90); RED CELL DISTRI WIDTH 13.3 % (0-14.5); WHITE BLOOD COUNT 9.7 10*3/uL (4.8-10.8)
[2019-03-28 11:39] LABS: ACT PARTIAL THROMBO TIME 22.8 SECONDS (20.0-32.1)
[2019-03-28 11:43] LABS: ALBUMIN 2.6 gm/dl (3.1-4.5); ALKALINE PHOSPHATASE 37 U/L (45-117); BUN 19 mg/dl (7-24); CHLORIDE 106 mmol/L (98-107); CREATININE 1.01 mg/dL (0.70-1.30); LIPASE 187 U/L (73-393); POTASSIUM 3.6 mmol/L (3.5-5.1); SGOT/AST 23 IU/L (3-35); SGPT/ALT 38 U/L (12-78); SODIUM 139 mmol/L (136-145); TOTAL PROTEIN 5.1 gm/dL (6.4-8.2); TROPONIN I 0.044 ng/ml (<0.045)
--- NOTE | 2019-03-28 13:30 | NUR ---
A 73, admitted to ICCU, under the services of CHRIS Wilburn DO with a diagnosis of GI BLEED, ANEMIA. Chief complaint is WEAKNESS. Patient arrived via bed from ER. Monitor applied. Initial assessment completed. Vital signs taken and recorded. CHRIS WILBURN DO notified of admission to the unit. Orders received. See assessment for past medical history, medications and allergies. Patient and/or family oriented to unit. [facility] visitation policy reviewed. Clothing/patient valuable form completed. APOORVA RAY
--- NOTE | 2019-03-28 13:46 | NUR ---
PATIENT TAKEN TO [facility]U BY THIS NURSE BEDSIDE REPORT GIVEN. NO CHANGE IN STATUS. PATIENT APPEARS MORE ALERT NOW AND ORIENTED.
[2019-03-28 13:52] LABS: BILIRUBIN NEGATIVE (NEGATIVE); BLOOD NEGATIVE (NEGATIVE); CLARITY SL CLOUDY (CLEAR); COLOR YELLOW (YELLOW); GLUCOSE NEGATIVE (NEGATIVE); KETONE NEGATIVE (NEGATIVE); LEUKO ESTERASE NEGATIVE (NEGATIVE); NITRITE NEGATIVE (NEGATIVE); UROBILINOGEN 0.2 E.U./dl (0.2-1.0)
--- NOTE | 2019-03-28 13:56 | NUR ---
PATIENT DENIED WOUNDS
[2019-03-28 14:03] LABS: BACTERIA 2+; RBC 0-2 rbc/hpf (0-2)
--- NOTE | 2019-03-28 14:03 | NUR ---
CALLED DR. NOGUEIRA, GAVE HISTORY. PHONE CUT OUT, AWAITING CALL BACK.
--- NOTE | 2019-03-28 14:50 | NUR ---
PATIENT HAS COMPLAINT OF RIB PAIN, STARTS IN HIS BACK THEN INTO RIBS. PATIENT RATES 7/10. MORPHINE GIVEN. WILL MONITOR AND REASSESS.
--- NOTE | 2019-03-28 15:47 | NUR ---
PATIENT STATED THE MORPHINE WAS EFFECTIVE FOR PAIN.
--- NOTE | 2019-03-28 20:30 | NUR ---
ND RETURNED FROM SURGERY. AWAKE, A&OX3, PLEASANT AND COOPERTIVE. RESP NONLABORED. SKIN WARM AND DRY. NO ACUTE DISTRESS NOTED. REPORT RECEIVED FROM YVON ROQUE FROM SURGERY. SR NOGUEIRA HERE AND ORDERS FOR 2GM CARAFATE SLURRY Q6H-2 HOURS BEFORE MEALS AND AT HS. PROTONIX 40MG IV BID. PT RESTING IN BED TALKING WITH DAUGHTER AT THIS TIME. DENIES ANY PAIN OR DISCOMFORT AT THIS TIME. VSS.
[2019-03-28 20:59] LABS: BASO % 0.1 % (0.0-1.0); EOS # 0.3 10*3/uL (0.0-0.4); EOS % 3.7 % (1.0-4.0); HEMOGLOBIN 8.4 g/dl (14.0-18.0); LYMPH # 1.6 10*3/uL (1.3-4.4); MEAN CELL VOLUME 95.8 fl (80.0-94.0); MEAN CORPUSCULAR HGB 32.2 pg (27.0-31.0); MEAN CORPUSCULAR HGB CONC 33.6 g/dl (33.0-37.0); MEAN PLATELET VOLUME 9.9 fl (9.6-12.3); MONO # 0.8 10*3/uL (0.1-1.0); MONO % 10.4 % (3.0-9.0); NEUT # 4.5 10*3/uL (2.3-7.9); NEUT % 62.6 % (47.0-73.0); PLATELET COUNT AUTOMATED 188 10*3/uL (130-400); RED BLOOD COUNT 2.61 10*6/uL (4.50-5.90); RED CELL DISTRI WIDTH 14.7 % (0-14.5); WHITE BLOOD COUNT 7.2 10*3/uL (4.8-10.8)
--- NOTE | 2019-03-28 21:45 | NUR ---
MEDICATED WITH NORCO PER PRN ORDER FOR C/O ABD INTO RIB PAIN.
[2019-03-29] VITALS: BP 132/74
[2019-03-29 04:00] VITALS: BP 140/84
--- NOTE | 2019-03-29 04:00 | NUR ---
MEDICATED WITH NORCO PER PRN ORDER FOR C/O ABD PAIN INTO RIB PAIN.
--- NOTE | 2019-03-29 06:00 | NUR ---
NORCO WAS EFFECTIVE.
[2019-03-29 06:11] LABS: BASO % 0.3 % (0.0-1.0); EOS # 0.4 10*3/uL (0.0-0.4); EOS % 5.7 % (1.0-4.0); HEMATOCRIT 26.7 % (42.0-52.0); HEMOGLOBIN 8.8 g/dl (14.0-18.0); LYMPH # 1.3 10*3/uL (1.3-4.4); LYMPH % 19.4 % (27.0-41.0); MEAN CELL VOLUME 95.7 fl (80.0-94.0); MEAN CORPUSCULAR HGB 31.5 pg (27.0-31.0); MEAN PLATELET VOLUME 10.3 fl (9.6-12.3); MONO # 0.7 10*3/uL (0.1-1.0); MONO % 9.9 % (3.0-9.0); NEUT # 4.2 10*3/uL (2.3-7.9); NEUT % 62.7 % (47.0-73.0); PLATELET COUNT AUTOMATED 215 10*3/uL (130-400); RED BLOOD COUNT 2.79 10*6/uL (4.50-5.90); RED CELL DISTRI WIDTH 15.4 % (0-14.5); WHITE BLOOD COUNT 6.7 10*3/uL (4.8-10.8)
[2019-03-29 06:23] LABS: BUN 13 mg/dl (7-24); CHLORIDE 108 mmol/L (98-107); CREATININE 0.67 mg/dL (0.70-1.30); PHOSPHOROUS 2.7 mg/dL (2.5-4.9); POTASSIUM 3.4 mmol/L (3.5-5.1); SODIUM 139 mmol/L (136-145)
[2019-03-29 08:00] VITALS: BP 138/72
[2019-03-29 12:00] VITALS: BP 101/54
--- NOTE | 2019-03-29 13:32 | NUR ---
Intellectual Property Manager in to talk to patient. Patient states lives at home with his son. There are 16 steps in the home. Physician: Dr. Solitario Gilliland Pharmacy: [facility] Home health services: none Patient's level of ADLs: INDEPENDENT Patient has working utilities: yes DME: O2 @ 2L nc, nebulizer, portable O2 tanks, O2 supplier [employer] Follow-up physician's appointment after d/c: will be made by the hospitalist nurse director upon discharge Does patient want to access PORTAL?: no Discharge plan discussed with patient. He lives at home with his son. He is independent in his ADLs and ambulation. Discussed home health care services and he denies any home needs at this time. When medically stable he will be discharged to home. His son will provide transportation on discharge. EGD showed gastritis and hiatal hernia, colo showed duodenitis with a large duodenal ulcer, treating with protonix and carafate. TRISHA QUINN
[2019-03-29 16:00] VITALS: BP 122/71
[2019-03-29 20:00] VITALS: BP 112/66
--- NOTE | 2019-03-29 20:56 | NUR ---
PRN NORCO GIVEN FOR C/O ABDOMINAL PAIN. CALL LIGHT IS WITHIN REACH, WILL MONITOR EFFECT.
--- NOTE | 2019-03-29 22:00 | NUR ---
PRN NORCO EFFECTIVE PER PATIENT.
[2019-03-30] VITALS: BP 113/68
--- NOTE | 2019-03-30 05:51 | NUR ---
PRN NORCO GIVEN FOR ABDOMINAL PAIN. CALL LIGHT IS WITHIN REACH.
--- NOTE | 2019-03-30 06:19 | NUR ---
24 HR. CHART CHECK COMPLETE.
[2019-03-30 06:26] LABS: BUN 8 mg/dl (7-24); CHLORIDE 107 mmol/L (98-107); POTASSIUM 3.8 mmol/L (3.5-5.1); SODIUM 140 mmol/L (136-145)
[2019-03-30 06:38] LABS: BASO # 0.1 10*3/uL (0.0-0.1); BASO % 0.4 % (0.0-1.0); EOS # 0.6 10*3/uL (0.0-0.4); EOS % 5.3 % (1.0-4.0); HEMATOCRIT 31.7 % (42.0-52.0); HEMOGLOBIN 10.4 g/dl (14.0-18.0); LYMPH # 2.6 10*3/uL (1.3-4.4); LYMPH % 22.1 % (27.0-41.0); MEAN CELL VOLUME 96.9 fl (80.0-94.0); MEAN CORPUSCULAR HGB 31.8 pg (27.0-31.0); MEAN CORPUSCULAR HGB CONC 32.8 g/dl (33.0-37.0); MEAN PLATELET VOLUME 10.3 fl (9.6-12.3); MONO # 1.3 10*3/uL (0.1-1.0); MONO % 11.2 % (3.0-9.0); NEUT # 6.9 10*3/uL (2.3-7.9); NEUT % 59.6 % (47.0-73.0); RED BLOOD COUNT 3.27 10*6/uL (4.50-5.90); RED CELL DISTRI WIDTH 16.1 % (0-14.5); WHITE BLOOD COUNT 11.7 10*3/uL (4.8-10.8)
[2019-03-30 06:43] LABS: PLATELET COUNT AUTOMATED 337 10*3/uL (130-400)
--- NOTE | 2019-03-30 07:00 | NUR ---
VITALS STABLE. ALERT AND ORIENTED X 3. MAREK. CAP REFILL < 3 SECONDS. SKIN TURGOR NON-TENTING. POSTIVE PEDAL PULSES. HEART SOUNDS NORMAL. RESPIRATIONS EASY AND NON-LABORED. PO2 100% ON 2L N/C. LUNGS DIMINISHED, BUT CLEAR THROUGHOUT. ABDOMEN SOFT, NON-TENDER, NON-DISTENDED. BOWEL SOUNDS X 4. SKIN WARM, DRY AND INTACT. IV SITES ON RIGHT AC AND WRIST BOTH INTACT- NO REDNESS OR SWELLING. NO COMPLAINTS AT THIS TIME. WILL CONTINUE TO ASSESS. JESÚS GARVEY [facility]
[2019-03-30 08:00] VITALS: BP 118/78
--- NOTE | 2019-03-30 08:45 | NUR ---
Occupational Therapy evaluation completed on 5 with full eval to follow. Precautions include unsteady in standing,IV UE,oxygen dependency, low complexity level 92237. Recommend OT per poc and home with family and home health SN,OT,PT. Thank you Lizzy Choudhury OTR/l
--- NOTE | 2019-03-30 09:00 | NUR ---
Verifier Operator in to see patient. No new needs or request at this time. He denies any home needs. When medically stable he will be discharged to home. Treating large duodenal ulcer with protonix and carafate. Hgb 10.4.
--- NOTE | 2019-03-30 09:48 | NUR ---
PHYSICAL THERAPY Jing completed low complexity level 13590 recomend home with home health at discharge. PT to work on strengthening,amb, transfers and stairs. Full report to follow. Karrie Cook PT
--- NOTE | 2019-03-30 10:42 | NUR ---
PT RESTING IN BED WATCHING TV. RESPIRATIONS EASY AND NON-LABORED. PLEASANT. NO COMPLAINTS AT THIS TIME. WILL CONTINUE TO ASSESS. JESÚS LONMERCEDES SPNRCC
[2019-03-30 12:00] VITALS: BP 126/76
[2019-03-30] MEDS ORDERED: HYDROCODONE-AC1 EAC1 PO (13:06)
[2019-03-30] MEDS ORDERED: PROTONIX20 MG PO (13:06)
[2019-03-30] MEDS ORDERED: ASPIRIN ADULT L81 M2 PO (13:06)
--- NOTE | 2019-03-30 13:35 | NUR ---
PT TOLERATED SOFT DIET FOR LUNCH WITHOUT DIFFICULTY. PLAN TO DISCHARGE PER ORDERS.
--- NOTE | 2019-03-30 13:58 | NUR ---
Discharge instructions reviewed with patient/family. Patient receptive and verbalizes understanding. Follow-up care arranged. Written instructions given to patient/family. GAMA DYE
--- NOTE | 2019-03-31 08:34 | NUR ---
PHYSICAL THERAPY CO-SIGN I approve of the Physical Therapy notes written above. Karrie Cook PT
== END 2019-03-30 13:58 | disposition home or self-care (01) | DRG 377 ==
LOC: ED 10:53 → ICCU 12:14 → EDHOLD 12:14 → ICCU 12:40 → 5E 03-29 13:09
PROVIDERS: Emergency Medicine; Internal Medicine; ADMIT Internal Medicine
PROC: 30233N1 Transfusion of Nonautologous Red Blood Cells into Peripheral Vein, Percutaneous Approach (ICD-10-PCS; principal; 2019-03-28)
PROC: 0DB78ZX Excision of Stomach, Pylorus, Via Natural or Artificial Opening Endoscopic, Diagnostic (ICD-10-PCS; principal; 2019-03-28)
DX: K26.4 Chronic or unspecified duodenal ulcer with hemorrhage (principal); E43 Unspecified severe protein-calorie malnutrition; D62 Acute posthemorrhagic anemia; K29.71 Gastritis, unspecified, with bleeding; I95.89 Other hypotension; E86.1 Hypovolemia; R73.9 Hyperglycemia, unspecified; K21.9 Gastro-esophageal reflux disease without esophagitis; E53.8 Deficiency of other specified B group vitamins; E55.9 Vitamin D deficiency, unspecified; F32.9 Major depressive disorder, single episode, unspecified; J44.9 Chronic obstructive pulmonary disease, unspecified; E78.5 Hyperlipidemia, unspecified; K44.9 Diaphragmatic hernia without obstruction or gangrene; K29.81 Duodenitis with bleeding; I10 Essential (primary) hypertension; I25.10 Atherosclerotic heart disease of native coronary artery without angina pectoris; T39.315A Adverse effect of propionic acid derivatives, initial encounter; Z85.46 Personal history of malignant neoplasm of prostate; Z90.49 Acquired absence of other specified parts of digestive tract; Z98.49 Cataract extraction status, unspecified eye; Z95.1 Presence of aortocoronary bypass graft; Y92.89 Other specified places as the place of occurrence of the external cause; Z87.891 Personal history of nicotine dependence; Z90.79 Acquired absence of other genital organ(s); Z82.49 Family history of ischemic heart disease and other diseases of the circulatory system; Z88.8 Allergy status to other drugs, medicaments and biological substances; Z91.030 Bee allergy status; Z79.899 Other long term (current) drug therapy; Z79.82 Long term (current) use of aspirin; Z68.21 Body mass index [BMI] 21.0-21.9, adult

== ENCOUNTER 2019-03-31 21:56 | Inpatient (IN) | payer MEDICARE ==
[~2019-03-31] VITALS: Ht 172.7 cm; Wt 63.7 kg
[~2019-03-31 21:56] MED LIST changes: +PROTONIX20 MG PO
[2019-03-31 21:57] VITALS: BP 86/45
[2019-03-31 22:49] VITALS: BP 70/44
--- NOTE | 2019-03-31 23:01 | NUR ---
0.9NS REDUCED TO 100ML/HR TO BILATERAL IV SITES PER DR JUSTIN PINA REQUEST,PT POSITIONED FOR COMFORT WITH [employer] INTACT AND CALL LIGHT WITHIN REACH,ADDITIONAL ORDERS PLACED PER PHYSICIAN.
--- NOTE | 2019-03-31 23:11 | NUR ---
PT WITH NEW COMPLAINT OF MIDSTERNAL C/P AND DR. JUSTIN PNIA AWARE,PT WITH RESIDENT PHYSICAN DR. TENORIO @ BEDSIDE DISCUSSING PLAN OF CARE @ THIS TIME.
[2019-03-31 23:15] VITALS: BP 75/51
[2019-03-31 23:27] LABS: BASO % 0.5 % (0.0-1.0); EOS # 0.4 10*3/uL (0.0-0.4); EOS % 6.5 % (1.0-4.0); HEMATOCRIT 22.8 % (42.0-52.0); HEMOGLOBIN 7.5 g/dl (14.0-18.0); LYMPH # 1.3 10*3/uL (1.3-4.4); LYMPH % 20.1 % (27.0-41.0); MEAN CELL VOLUME 98.3 fl (80.0-94.0); MEAN CORPUSCULAR HGB 32.3 pg (27.0-31.0); MEAN CORPUSCULAR HGB CONC 32.9 g/dl (33.0-37.0); MONO # 0.6 10*3/uL (0.1-1.0); MONO % 9.8 % (3.0-9.0); NEUT % 62.3 % (47.0-73.0); RED BLOOD COUNT 2.32 10*6/uL (4.50-5.90); RED CELL DISTRI WIDTH 15.9 % (0-14.5); WHITE BLOOD COUNT 6.4 10*3/uL (4.8-10.8)
[2019-03-31 23:29] LABS: PLATELET COUNT AUTOMATED 219 10*3/uL (130-400)
[2019-03-31 23:39] LABS: ACT PARTIAL THROMBO TIME 26.8 SECONDS (20.0-32.1)
[2019-03-31 23:48] LABS: ALBUMIN 2.3 gm/dl (3.1-4.5); ALKALINE PHOSPHATASE 52 U/L (45-117); BUN 11 mg/dl (7-24); CHLORIDE 109 mmol/L (98-107); CREATININE 1.13 mg/dL (0.70-1.30); LIPASE 104 U/L (73-393); POTASSIUM 3.7 mmol/L (3.5-5.1); SGOT/AST 20 IU/L (3-35); SGPT/ALT 27 U/L (12-78); SODIUM 140 mmol/L (136-145); TOTAL PROTEIN 4.6 gm/dL (6.4-8.2)
[2019-03-31 23:50] LABS: TROPONIN I 0.051 ng/ml (<0.045)
[2019-04-01] VITALS (13 sets, daily range): BP systolic 92–168; BP diastolic 50–88
--- NOTE | 2019-04-01 01:20 | NUR ---
A 73 YEAR OLD MALE admitted to [facility], under the services of WINSTON Johnson DO with a diagnosis of GI BLEED. Chief complaint is LOW BLOOD PRESSURE AT HOME. Patient arrived via stretcher from ER. Monitor applied. Initial assessment completed. Vital signs taken and recorded. WINSTON JOHNSON DO notified of admission to the unit. Orders received. See assessment for past medical history, medications and allergies. Patient and/or family oriented to unit. [facility] visitation policy reviewed. Clothing/patient valuable form completed. GUME TENORIO
--- NOTE | 2019-04-01 02:50 | NUR ---
BLOOD START. PATIENT STABLE.
[2019-04-01 03:03] LABS: BILIRUBIN NEGATIVE (NEGATIVE); BLOOD NEGATIVE (NEGATIVE); CLARITY CLEAR (CLEAR); COLOR YELLOW (YELLOW); GLUCOSE NEGATIVE (NEGATIVE); KETONE NEGATIVE (NEGATIVE); LEUKO ESTERASE NEGATIVE (NEGATIVE); NITRITE NEGATIVE (NEGATIVE); PH 6.5 (5.0-9.0); SPECIFIC GRAVITY <= 1.005 (1.005-1.030); UROBILINOGEN 0.2 E.U./dl (0.2-1.0)
--- NOTE | 2019-04-01 03:39 | NUR ---
Shift chart check completed.
--- NOTE | 2019-04-01 04:48 | NUR ---
PATIENT REQUESTING SOMETHING FOR PAIN - DR MAURICIO CALLED & HOME MED BEING ORDERED
--- NOTE | 2019-04-01 05:01 | NUR ---
MEDICATED WITH NORCO FOR C/O "JUST ALL OVER" - NORCO REQUESTED & GIVEN
--- NOTE | 2019-04-01 05:32 | NUR ---
PER PT PAIN IS DOWN TO A 4.. BLOOD COMPLETED 7 LINE BEING FLUSHED WITH SA;LINE TO GET ALL LEFT IN TUBING
[2019-04-01 07:11] LABS: BASO % 0.4 % (0.0-1.0); EOS # 0.4 10*3/uL (0.0-0.4); EOS % 4.5 % (1.0-4.0); HEMATOCRIT 28.7 % (42.0-52.0); HEMOGLOBIN 9.5 g/dl (14.0-18.0); LYMPH # 1.3 10*3/uL (1.3-4.4); LYMPH % 13.4 % (27.0-41.0); MEAN CELL VOLUME 96.6 fl (80.0-94.0); MEAN CORPUSCULAR HGB CONC 33.1 g/dl (33.0-37.0); MEAN PLATELET VOLUME 9.9 fl (9.6-12.3); MONO # 0.8 10*3/uL (0.1-1.0); MONO % 8.1 % (3.0-9.0); NEUT # 7.1 10*3/uL (2.3-7.9); PLATELET COUNT AUTOMATED 252 10*3/uL (130-400); RED BLOOD COUNT 2.97 10*6/uL (4.50-5.90); RED CELL DISTRI WIDTH 16.3 % (0-14.5); WHITE BLOOD COUNT 9.7 10*3/uL (4.8-10.8)
[2019-04-01 07:22] LABS: ALBUMIN 2.5 gm/dl (3.1-4.5); ALKALINE PHOSPHATASE 46 U/L (45-117); BUN 10 mg/dl (7-24); CHLORIDE 110 mmol/L (98-107); CREATININE 0.92 mg/dL (0.70-1.30); POTASSIUM 3.9 mmol/L (3.5-5.1); SGOT/AST 18 IU/L (3-35); SGPT/ALT 27 U/L (12-78); SODIUM 141 mmol/L (136-145); TOTAL PROTEIN 4.8 gm/dL (6.4-8.2)
[2019-04-01 07:25] LABS: TROPONIN I 0.094 ng/ml (<0.045)
--- NOTE | 2019-04-01 09:01 | NUR ---
DR SANTOS HERE - PATIENT SEEN - PROSECUTING ATTORNEY BERENICE GALLAGHER MADE AWARE THAT PATIENT IS DOWNGRADED TO STEP-DOWN
--- NOTE | 2019-04-01 10:04 | NUR ---
FAMILY SPOKE WITH DR HARRISON
--- NOTE | 2019-04-01 11:46 | NUR ---
SANJIV BY MOUTH FOR PAIN "6"/10 IN HIS ABDOMEN,HEAD AND HANDS.
[2019-04-01 12:57] LABS: BASO % 0.4 % (0.0-1.0); EOS # 0.5 10*3/uL (0.0-0.4); EOS % 5.7 % (1.0-4.0); HEMATOCRIT 31.7 % (42.0-52.0); HEMOGLOBIN 10.4 g/dl (14.0-18.0); LYMPH # 1.5 10*3/uL (1.3-4.4); LYMPH % 15.9 % (27.0-41.0); MEAN CELL VOLUME 95.8 fl (80.0-94.0); MEAN CORPUSCULAR HGB 31.4 pg (27.0-31.0); MEAN CORPUSCULAR HGB CONC 32.8 g/dl (33.0-37.0); MEAN PLATELET VOLUME 9.9 fl (9.6-12.3); MONO # 0.8 10*3/uL (0.1-1.0); MONO % 8.4 % (3.0-9.0); NEUT # 6.5 10*3/uL (2.3-7.9); NEUT % 68.8 % (47.0-73.0); PLATELET COUNT AUTOMATED 257 10*3/uL (130-400); RED BLOOD COUNT 3.31 10*6/uL (4.50-5.90); RED CELL DISTRI WIDTH 16.3 % (0-14.5); WHITE BLOOD COUNT 9.4 10*3/uL (4.8-10.8)
--- NOTE | 2019-04-01 13:00 | NUR ---
MOVED TO 407-1 VIA BED WITH BELONGINGS - FAMILY AWARE OF ROOM CHANGE
--- NOTE | 2019-04-01 13:05 | NUR ---
PAIN BETTER SINCE MEDICATED
--- NOTE | 2019-04-01 14:00 | NUR ---
PT RESTING IN BED. NO S/S 0F DISTRESS NOTED. RESPIRATIONS EASY AND UNLABORED ON 3L NC. IV FLUIDS INFUSING PER ORDERS. IV SITE IS PATENT. FAMILY REQUESTING DIET CHANGE. WILL NOTIFY PHYSICIAN.
--- NOTE | 2019-04-01 14:45 | NUR ---
DR SANTOS GIVES OKAY FOR PT DIET TO BE SWITCHED FROM CLEAR LIQUIDS TO FULL LIQUIDS. WILL NOTIFY PT AND FAMILY.
--- NOTE | 2019-04-01 17:47 | NUR ---
CALLED DR. SCHREIBER FOR ADMISSION ORDERS. NEW ORDERS WERE GIVEN AND PER DR. SCHREIBER, SHE WANTED TO HOLD OFF ON PT'S HOME MEDICATIONS.
[2019-04-02] VITALS: BP 150/79
--- NOTE | 2019-04-02 00:50 | NUR ---
NORCO GIVEN PER PATIENT REQUEST FOR COMPLAINTS OF BACK PAIN RATED 9/10. WILL ASSESS EFFECTIVENESS.
--- NOTE | 2019-04-02 01:00 | NUR ---
NOTIFIED DR OLMSTEAD OF EKG RESULTS.
--- NOTE | 2019-04-02 01:12 | NUR ---
PATIENT STATED HE IS FEELING BETTER AFTER BREATHING TREATMENT AND NORCO. RESTING IN BED COMFORTABLY. PULSE OX 99% ON ROOM AIR. RESPIRATIONS EASY, REGULAR, NO DISTRESS. CALL LIGHT WITHIN REACH. WILL CONTINUE TO MONITOR THE PATIENT.
[2019-04-02 01:22] LABS: BASO # 0.1 10*3/uL (0.0-0.1); BASO % 0.4 % (0.0-1.0); EOS # 0.7 10*3/uL (0.0-0.4); EOS % 5.7 % (1.0-4.0); HEMATOCRIT 34.7 % (42.0-52.0); HEMOGLOBIN 11.2 g/dl (14.0-18.0); LYMPH # 1.7 10*3/uL (1.3-4.4); MEAN CELL VOLUME 97.5 fl (80.0-94.0); MEAN CORPUSCULAR HGB 31.5 pg (27.0-31.0); MEAN CORPUSCULAR HGB CONC 32.3 g/dl (33.0-37.0); MEAN PLATELET VOLUME 9.8 fl (9.6-12.3); MONO % 8.6 % (3.0-9.0); NEUT # 7.9 10*3/uL (2.3-7.9); NEUT % 69.7 % (47.0-73.0); PLATELET COUNT AUTOMATED 293 10*3/uL (130-400); RED BLOOD COUNT 3.56 10*6/uL (4.50-5.90); RED CELL DISTRI WIDTH 16.7 % (0-14.5); WHITE BLOOD COUNT 11.4 10*3/uL (4.8-10.8)
--- NOTE | 2019-04-02 02:10 | NUR ---
NOTIFIED DR VARNER OF ELEVATED TROPONIN LEVEL RECIEVED FROM LAB. NO ORDERS RECIEVED AT THIS TIME.
--- NOTE | 2019-04-02 02:46 | NUR ---
Patient resting quietly with no c/o discomfort. Respirations easy and regular. Vital signs stable. No overt distress. ELENI CESAR
[2019-04-02 06:22] LABS: BASO % 0.4 % (0.0-1.0); EOS # 0.5 10*3/uL (0.0-0.4); EOS % 4.4 % (1.0-4.0); HEMOGLOBIN 10.1 g/dl (14.0-18.0); LYMPH # 1.2 10*3/uL (1.3-4.4); LYMPH % 11.9 % (27.0-41.0); MEAN CELL VOLUME 95.4 fl (80.0-94.0); MEAN CORPUSCULAR HGB 31.1 pg (27.0-31.0); MEAN CORPUSCULAR HGB CONC 32.6 g/dl (33.0-37.0); MEAN PLATELET VOLUME 9.8 fl (9.6-12.3); MONO # 0.9 10*3/uL (0.1-1.0); MONO % 8.7 % (3.0-9.0); NEUT # 7.6 10*3/uL (2.3-7.9); NEUT % 74.2 % (47.0-73.0); PLATELET COUNT AUTOMATED 264 10*3/uL (130-400); RED BLOOD COUNT 3.25 10*6/uL (4.50-5.90); RED CELL DISTRI WIDTH 16.2 % (0-14.5); WHITE BLOOD COUNT 10.2 10*3/uL (4.8-10.8)
[2019-04-02 07:10] LABS: BUN 8 mg/dl (7-24); CHLORIDE 111 mmol/L (98-107); CREATININE 0.86 mg/dL (0.70-1.30); PHOSPHOROUS 2.8 mg/dL (2.5-4.9); POTASSIUM 3.9 mmol/L (3.5-5.1); SODIUM 143 mmol/L (136-145)
[2019-04-02 08:00] VITALS: BP 160/90
--- NOTE | 2019-04-02 08:20 | NUR ---
MEDICATED WITH PRN PO NORCO FOR BACK AND RIB CAGE PAIN.
--- NOTE | 2019-04-02 10:13 | NUR ---
PRN PO NORCO EFFECTIVE, PER PATIENT.
[2019-04-02 12:00] VITALS: BP 122/74
--- NOTE | 2019-04-02 13:39 | NUR ---
MEDICATED WITH PRN PO NORCO FOR C/O LOWER RIB CAGE/UPPER ABDOMEN PAIN.
--- NOTE | 2019-04-02 14:30 | NUR ---
PRN PO NORCO SOMEWHAT EFFECTIVE, PER PATIENT.
[2019-04-02 16:00] VITALS: BP 117/68
--- NOTE | 2019-04-02 17:32 | NUR ---
MEDICATED WITH PRN PO NORCO FOR PAIN TO RIBCAGE AND UPPER ABDOMEN AREA.
[2019-04-02 20:00] VITALS: BP 119/75
--- NOTE | 2019-04-02 22:16 | NUR ---
24 HR chart check completed.
[2019-04-03] VITALS: BP 127/77
[2019-04-03 06:33] LABS: BASO # 0.1 10*3/uL (0.0-0.1); BASO % 0.5 % (0.0-1.0); EOS # 0.5 10*3/uL (0.0-0.4); EOS % 4.6 % (1.0-4.0); HEMATOCRIT 33.7 % (42.0-52.0); HEMOGLOBIN 10.8 g/dl (14.0-18.0); LYMPH # 1.4 10*3/uL (1.3-4.4); LYMPH % 12.2 % (27.0-41.0); MEAN CELL VOLUME 97.4 fl (80.0-94.0); MEAN CORPUSCULAR HGB 31.2 pg (27.0-31.0); MEAN PLATELET VOLUME 9.9 fl (9.6-12.3); MONO # 1.1 10*3/uL (0.1-1.0); MONO % 9.6 % (3.0-9.0); NEUT # 8.1 10*3/uL (2.3-7.9); NEUT % 72.6 % (47.0-73.0); PLATELET COUNT AUTOMATED 274 10*3/uL (130-400); RED BLOOD COUNT 3.46 10*6/uL (4.50-5.90); RED CELL DISTRI WIDTH 15.8 % (0-14.5); WHITE BLOOD COUNT 11.1 10*3/uL (4.8-10.8)
[2019-04-03 07:01] LABS: BUN 10 mg/dl (7-24); CHLORIDE 108 mmol/L (98-107); CREATININE 0.84 mg/dL (0.70-1.30); POTASSIUM 3.9 mmol/L (3.5-5.1); SODIUM 140 mmol/L (136-145)
[2019-04-03 08:00] VITALS: BP 124/78
--- NOTE | 2019-04-03 10:32 | NUR ---
PT DISCHARGD HOME AT THIS TIME VIA WHEELCHAIR WITH HIS SON. DISCHARGE INSTRUCTIONS REVIEWED.
== END 2019-04-03 10:32 | disposition home or self-care (01) | DRG 377 ==
LOC: ED 21:56 → EDHOLD 04-01 00:51 → ICCU 04-01 00:51 → 4E 04-01 13:54
PROVIDERS: Emergency Medicine Emergency Medical Services; Internal Medicine; ADMIT Family Medicine
PROC: 30233N1 Transfusion of Nonautologous Red Blood Cells into Peripheral Vein, Percutaneous Approach (ICD-10-PCS; principal; 2019-04-01)
DX: K29.71 Gastritis, unspecified, with bleeding (principal); E43 Unspecified severe protein-calorie malnutrition; D62 Acute posthemorrhagic anemia; J96.11 Chronic respiratory failure with hypoxia; I24.8 Other forms of acute ischemic heart disease; G89.29 Other chronic pain; F32.9 Major depressive disorder, single episode, unspecified; K21.9 Gastro-esophageal reflux disease without esophagitis; E78.5 Hyperlipidemia, unspecified; I10 Essential (primary) hypertension; I95.89 Other hypotension; R73.9 Hyperglycemia, unspecified; E87.8 Other disorders of electrolyte and fluid balance, not elsewhere classified; K26.9 Duodenal ulcer, unspecified as acute or chronic, without hemorrhage or perforation; J42 Unspecified chronic bronchitis; F17.210 Nicotine dependence, cigarettes, uncomplicated; Z88.8 Allergy status to other drugs, medicaments and biological substances; Z79.899 Other long term (current) drug therapy; Z91.030 Bee allergy status; Z95.1 Presence of aortocoronary bypass graft; Z98.49 Cataract extraction status, unspecified eye; Z99.81 Dependence on supplemental oxygen; Z71.6 Tobacco abuse counseling; Z82.49 Family history of ischemic heart disease and other diseases of the circulatory system

== ENCOUNTER → 2019-05-13 | Day surgery (SDC) | payer MEDICARE ==
[~2019-05-13] VITALS: Ht 172.7 cm; Wt 59.0 kg
[~2019-05-13] MED LIST changes: +INCRUSE ELLI62.5 MCG INH; +OMEPRAZOLE40 MG PO
[2019-05-13 07:00] VITALS: BP 159/82
[2019-05-13 08:28] VITALS: BP 93/52
[2019-05-13 09:00] VITALS: BP 134/68
== END | disposition home or self-care (01) ==
LOC: SDC 05-09 08:00
DX: K29.70 Gastritis, unspecified, without bleeding (principal); K21.0 Gastro-esophageal reflux disease with esophagitis; F41.9 Anxiety disorder, unspecified; F32.9 Major depressive disorder, single episode, unspecified; J44.9 Chronic obstructive pulmonary disease, unspecified; I25.10 Atherosclerotic heart disease of native coronary artery without angina pectoris; I25.2 Old myocardial infarction; Z98.890 Other specified postprocedural states; Z79.899 Other long term (current) drug therapy; Z82.3 Family history of stroke

== ENCOUNTER → 2020-01-12 | Outpatient (CLI) | payer MEDICARE ==
[~2020-01-12] MED LIST changes: +FOLIXAPURE5000 UNIT PO; +VITAMIN B-12250 MCG PO; +ZANAFLEX4 M2 PO
== END | disposition home or self-care (01) ==
LOC: CT 09:58
PROVIDERS: ATTEND Internal Medicine Critical Care Medicine
DX: J43.8 Other emphysema (principal); R91.1 Solitary pulmonary nodule; I25.10 Atherosclerotic heart disease of native coronary artery without angina pectoris; K44.9 Diaphragmatic hernia without obstruction or gangrene

== ENCOUNTER 2020-07-15 18:48 | Emergency (ER) | payer MEDICARE ==
[~2020-07-15] VITALS: Ht 172.7 cm; Wt 68.0 kg
[2020-07-15 19:03] LABS: BASO # 0.1 10*3/uL (0.0-0.1); BASO % 0.7 % (0.0-1.0); EOS # 0.2 10*3/uL (0.0-0.4); EOS % 2.2 % (1.0-4.0); HEMATOCRIT 45.2 % (42.0-52.0); LYMPH # 1.4 10*3/uL (1.3-4.4); LYMPH % 19.5 % (27.0-41.0); MEAN CELL VOLUME 101.8 fl (80.0-94.0); MEAN CORPUSCULAR HGB 33.6 pg (27.0-31.0); MEAN PLATELET VOLUME 9.6 fl (9.6-12.3); MONO # 0.9 10*3/uL (0.1-1.0); MONO % 12.6 % (3.0-9.0); NEUT # 4.8 10*3/uL (2.3-7.9); NEUT % 64.7 % (47.0-73.0); PLATELET COUNT AUTOMATED 193 10*3/uL (130-400); RED BLOOD COUNT 4.44 10*6/uL (4.50-5.90); RED CELL DISTRI WIDTH 13.2 % (0-14.5); WHITE BLOOD COUNT 7.4 10*3/uL (4.8-10.8)
[2020-07-15 19:15] LABS: ACT PARTIAL THROMBO TIME 24.5 SECONDS (20.0-32.1)
[2020-07-15 19:22] LABS: ALBUMIN 3.8 gm/dl (3.1-4.5); ALKALINE PHOSPHATASE 61 U/L (45-117); BUN 8 mg/dl (7-24); CHLORIDE 100 mmol/L (98-107); CREATININE 0.97 mg/dL (0.70-1.30); POTASSIUM 4.1 mmol/L (3.5-5.1); SGOT/AST 20 IU/L (3-35); SGPT/ALT 25 U/L (12-78); SODIUM 133 mmol/L (136-145); TOTAL PROTEIN 7.3 gm/dL (6.4-8.2)
[2020-07-15 19:30] LABS: TROPONIN I < 0.015 ng/ml (<0.045)
== END 2020-07-15 20:38 | disposition home or self-care (01) ==
LOC: ED 18:48
PROVIDERS: Student in an Organized Health Care Education/Training Program
DX: R07.89 Other chest pain (principal); E87.1 Hypo-osmolality and hyponatremia; D75.89 Other specified diseases of blood and blood-forming organs; R11.2 Nausea with vomiting, unspecified; Z98.61 Coronary angioplasty status; Z88.8 Allergy status to other drugs, medicaments and biological substances; Z91.013 Allergy to seafood; Z79.899 Other long term (current) drug therapy; Z79.2 Long term (current) use of antibiotics; Z79.82 Long term (current) use of aspirin; Z90.49 Acquired absence of other specified parts of digestive tract; Z98.890 Other specified postprocedural states; Z87.891 Personal history of nicotine dependence

== ENCOUNTER → 2020-08-23 | Outpatient (CLI) | payer MEDICARE | END | disposition home or self-care (01) | LOC: CARD 01:40 | PROVIDERS: ATTEND Internal Medicine Cardiovascular Disease | DX: I25.718 Atherosclerosis of autologous vein coronary artery bypass graft(s) with other forms of angina pectoris (principal); R06.00 Dyspnea, unspecified; R06.02 Shortness of breath; R94.31 Abnormal electrocardiogram [ECG] [EKG]; Z99.81 Dependence on supplemental oxygen; Z87.891 Personal history of nicotine dependence; Z95.5 Presence of coronary angioplasty implant and graft ==

== ENCOUNTER → 2020-09-18 | Outpatient (CLI) | payer MEDICARE ==
[2020-09-18 10:45] LABS: BASO # 0.1 10*3/uL (0.0-0.1); BASO % 0.8 % (0.0-1.0); BILIRUBIN Negative (Negative); BLOOD Negative (Negative); CLARITY Clear (Clear); COLOR Yellow (Yellow); EOS % 0.6 % (1.0-4.0); GLUCOSE Negative (Negative); KETONE Negative (Negative); LEUKO ESTERASE Trace (Negative); LYMPH # 1.2 10*3/uL (1.3-4.4); LYMPH % 18.5 % (27.0-41.0); MEAN CELL VOLUME 103.4 fl (80.0-94.0); MEAN CORPUSCULAR HGB 34.4 pg (27.0-31.0); MEAN CORPUSCULAR HGB CONC 33.3 g/dl (33.0-37.0); MEAN PLATELET VOLUME 9.2 fl (9.6-12.3); MONO # 0.6 10*3/uL (0.1-1.0); MONO % 9.4 % (3.0-9.0); NEUT # 4.5 10*3/uL (2.3-7.9); NEUT % 70.4 % (47.0-73.0); NITRITE Negative (Negative); PH 7.5 (4.5-8.0); PLATELET COUNT AUTOMATED 160 10*3/uL (130-400); RED BLOOD COUNT 4.16 10*6/uL (4.50-5.90); RED CELL DISTRI WIDTH 12.9 % (0-14.5); RETICULOCYTE % 1.42 % (0.50-2.50); SPECIFIC GRAVITY 1.015 (1.001-1.030); WHITE BLOOD COUNT 6.4 10*3/uL (4.8-10.8)
[2020-09-18 11:19] LABS: ALBUMIN 3.8 gm/dl (3.1-4.5); ALKALINE PHOSPHATASE 53 U/L (45-117); BUN 10 mg/dl (7-24); CHLORIDE 99 mmol/L (98-107); CHOLESTEROL 157 mg/dL (<200); CREATININE 0.99 mg/dL (0.70-1.30); GAMMA GLUTAMYL TRANSPEPTIDASE 31 U/L (15-85); IRON 104 ug/dL (65-175); LDL CHOLESTEROL 64 mg/dL (9-159); POTASSIUM 4.9 mmol/L (3.5-5.1); SGOT/AST 21 IU/L (3-35); SGPT/ALT 24 U/L (12-78); SODIUM 131 mmol/L (136-145); TOTAL IRON BINDING CAPACITY 370 ug/dl (250-450); TRIGLYCERIDES 79 mg/dl (<150)
[2020-09-18 11:26] LABS: TOTAL PROTEIN 7.2 gm/dL (6.4-8.2)
[2020-09-18 12:01] LABS: FERRITIN 33.1 ng/mL (22.0-322.0); VITAMIN D, 25-HYDROXY 85.4 ng/mL (30-100)
== END | disposition home or self-care (01) ==
LOC: LAB 10:22
PROVIDERS: ATTEND Family Medicine
DX: Z12.5 Encounter for screening for malignant neoplasm of prostate (principal); R79.89 Other specified abnormal findings of blood chemistry; R53.83 Other fatigue; E55.9 Vitamin D deficiency, unspecified; E78.5 Hyperlipidemia, unspecified; R74.8 Abnormal levels of other serum enzymes

== ENCOUNTER → 2020-10-02 | Outpatient (CLI) | payer MEDICARE ==
[2020-10-02 09:54] LABS: BUN 12 mg/dl (7-24); CHLORIDE 94 mmol/L (98-107); POTASSIUM 4.3 mmol/L (3.5-5.1); SODIUM 132 mmol/L (136-145)
== END | disposition home or self-care (01) ==
LOC: LAB 08:52
PROVIDERS: ATTEND Internal Medicine Cardiovascular Disease
DX: I25.718 Atherosclerosis of autologous vein coronary artery bypass graft(s) with other forms of angina pectoris (principal); R06.00 Dyspnea, unspecified; Z95.5 Presence of coronary angioplasty implant and graft

== ENCOUNTER 2020-11-25 09:35 | Emergency (ER) | payer MEDICARE ==
[~2020-11-25] VITALS: Ht 172.7 cm; Wt 67.6 kg
[2020-11-25 10:12] LABS: BASO % 0.5 % (0.0-1.0); EOS # 0.1 10*3/uL (0.0-0.4); EOS % 0.8 % (1.0-4.0); HEMATOCRIT 41.8 % (42.0-52.0); LYMPH # 1.1 10*3/uL (1.3-4.4); LYMPH % 13.2 % (27.0-41.0); MEAN CELL VOLUME 103.7 fl (80.0-94.0); MEAN CORPUSCULAR HGB 35.2 pg (27.0-31.0); MONO # 1.1 10*3/uL (0.1-1.0); MONO % 12.6 % (3.0-9.0); NEUT # 6.1 10*3/uL (2.3-7.9); NEUT % 72.4 % (47.0-73.0); PLATELET COUNT AUTOMATED 167 10*3/uL (130-400); RED BLOOD COUNT 4.03 10*6/uL (4.50-5.90); RED CELL DISTRI WIDTH 11.9 % (0-14.5); WHITE BLOOD COUNT 8.4 10*3/uL (4.8-10.8)
[2020-11-25 10:29] LABS: ALBUMIN 3.9 gm/dl (3.1-4.5); ALKALINE PHOSPHATASE 51 U/L (45-117); BUN 13 mg/dl (7-24); CHLORIDE 93 mmol/L (98-107); CREATININE 1.19 mg/dL (0.70-1.30); POTASSIUM 3.8 mmol/L (3.5-5.1); SGOT/AST 15 IU/L (3-35); SGPT/ALT 27 U/L (12-78); SODIUM 128 mmol/L (136-145)
[2020-11-25 10:44] LABS: ACETAMINOPHEN (TYLENOL) 15.1 ug/ml (10-30)
[2020-11-25 10:48] LABS: ETHYL ALCOHOL < 3.0 mg/dl (<3)
== END 2020-11-25 15:39 | disposition home or self-care (01) ==
LOC: ED 09:35
PROVIDERS: Emergency Medicine
DX: T50.901A Poisoning by unspecified drugs, medicaments and biological substances, accidental (unintentional), initial encounter (principal); R42 Dizziness and giddiness; R51.9 Headache, unspecified; F10.10 Alcohol abuse, uncomplicated; E87.1 Hypo-osmolality and hyponatremia; J44.9 Chronic obstructive pulmonary disease, unspecified; K21.9 Gastro-esophageal reflux disease without esophagitis; E78.5 Hyperlipidemia, unspecified; I10 Essential (primary) hypertension; I25.2 Old myocardial infarction; F17.200 Nicotine dependence, unspecified, uncomplicated; Z88.8 Allergy status to other drugs, medicaments and biological substances; Z91.030 Bee allergy status; Z79.899 Other long term (current) drug therapy; Z79.82 Long term (current) use of aspirin; Z85.46 Personal history of malignant neoplasm of prostate; Z90.49 Acquired absence of other specified parts of digestive tract; Z98.61 Coronary angioplasty status; Z98.890 Other specified postprocedural states; Y92.89 Other specified places as the place of occurrence of the external cause; Y90.0 Blood alcohol level of less than 20 mg/100 ml

== ENCOUNTER → 2020-12-11 | Outpatient (CLI) | payer MEDICARE | END | disposition home or self-care (01) | LOC: CARD 00:12 | PROVIDERS: ATTEND Internal Medicine Cardiovascular Disease | DX: I25.718 Atherosclerosis of autologous vein coronary artery bypass graft(s) with other forms of angina pectoris (principal); R06.00 Dyspnea, unspecified; Z95.5 Presence of coronary angioplasty implant and graft; Z99.81 Dependence on supplemental oxygen ==

== ENCOUNTER → 2021-01-22 | Outpatient (CLI) | payer MEDICARE | END | disposition home or self-care (01) | LOC: CT 10:53 | PROVIDERS: ATTEND Internal Medicine Critical Care Medicine | DX: J43.9 Emphysema, unspecified (principal); R91.1 Solitary pulmonary nodule; J96.11 Chronic respiratory failure with hypoxia; Z87.891 Personal history of nicotine dependence; Z99.81 Dependence on supplemental oxygen ==